=== PATIENT | female | born 1970 | race Caucasian/White ===

== ENCOUNTER → 2016-12-24 | Outpatient (CLI) | payer BC ==
[~2016-12-24] MED LIST: HYDR50CA2 PO; ISOS120T5 PO; LIDO5DIS10 TD; LISI-725 PO; METO25TA56 PO; ONDA4TAB46 PO; TRAM-10 PO; TRAZ1TAB8 PO
[2016-12-24 14:12] LABS: LYME DISEASE AB IGG NEG (NEG); LYME DISEASE AB IGM NEG (NEG)
[2016-12-29 12:38] LABS: ALBUMIN 4.8 G/DL (3.8-4.8); GAMMA GLOBULIN 0.9 G/DL (0.8-1.7); TOTAL PROTEIN 7.2 G/DL (6.2-8.3); VIT B1 PLASMA(THIAMIN)**90353 11 nmol/L (8-30); VITAMIN B6** TC 926 47.4 ng/mL (2.1-21.7)
== END | disposition home or self-care (01) ==
LOC: C.LAB 11:39
PROVIDERS: ATTEND Psychiatry & Neurology Neurology
DX: G62.9 Polyneuropathy, unspecified (principal)

== ENCOUNTER → 2017-06-06 | Outpatient (CLI) | payer BC ==
[2017-06-06 12:27] LABS: HEMATOCRIT 38.1 % (37-47); MEAN CELL VOLUME 88.6 fL (80-100); MEAN CORPUSCULAR HEMOGLOBIN 30.5 pg (25-34); MEAN CORPUSCULAR HGB CONC 34.4 g/dl (32-36); MEAN PLATELET VOLUME 9.9 fL (7.4-10.4); PLATELET COUNT 257 K/uL (130-400); WHITE BLOOD COUNT 5.68 K/uL (4.8-10.8)
== END | disposition home or self-care (01) ==
LOC: C.LABBFT 10:57
PROVIDERS: ATTEND Physician Assistant Medical
DX: Z00.00 Encounter for general adult medical examination without abnormal findings (principal)

== ENCOUNTER 2021-09-17 10:09 | Inpatient (IN) ==
[2021-09-17] MEDS ORDERED: fentaNYL citrate 100 MCG/2 ML VIAL IV STA (10:30)
[2021-09-17] MEDS ORDERED: ACETAMINOPHEN 1,000 MG/100 ML VIAL IV STA ×2 (10:30→18:00)
[2021-09-17 11:22] LABS: Basophils # (auto) 0.02 K/uL (0-0.2); Basophils % (auto) 0.4 %; Eosinophils # (auto) 0.09 K/uL (0-0.5); Hematocrit (blood only) 37.3 % (37-47); Hemoglobin 13.2 g/dL (12.0-16.0); Lymphocytes # (auto) 1.61 K/uL (1.2-3.4); Lymphocytes % (auto) 35.3 %; Mean Corpuscular Hemoglobin 31.1 pg (25-34); Mean Corpuscular Hgb Conc 35.4 g/dL (32-36); Mean Corpuscular Volume 87.8 fL (80-100); Mean Platelet Volume 9.7 fL (7.4-10.4); Monocytes # (auto) 0.37 K/uL (0.11-0.59); Monocytes % (auto) 8.1 %; Neutrophils # (auto) 2.47 K/uL (1.4-6.5); Neutrophils % (auto) 54.2 %; Platelet Count 248 K/uL (130-400); RDW Coefficient of Variation 12.2 % (11.5-14.5); RDW Standard Deviation 39.1 fL (36.4-46.3); Red Blood Count 4.25 M/uL (4.2-5.4); White Blood Count 4.56 K/uL (4.8-10.8)
[2021-09-17] MEDS: SODIUM CHLORIDE 0.9% 1000ML 1,000 ML IV SCH ×2 (11:26→18:13)
[2021-09-17 11:42] LABS: Albumin Level 4.3 gm/dl (3.4-5.0); BUN Creatinine Ratio 28.1 (10-20); Creatinine Clr Calc Pharmacy 91.2 ml/min; Est GFR (African American) 105.3 ml/min; Est GFR (Non-African American) 90.8 ml/min; Magnesium 1.8 mg/dl (1.8-2.4); Potassium 4.2 mmol/L (3.5-5.1)
[2021-09-17 11:53] LABS: Albumin Globulin Ratio 1.3 (0.9-2); Bilirubin,Total 0.4 mg/dl (0.2-1); Globulin 3.3 gm/dl (2.5-4.0); Thyroid Stimulating Hormone 1.29 uIu/ml (0.300-4.500); Total Protein 7.6 gm/dl (6.4-8.2)
[2021-09-17] MEDS ORDERED: OPTIRAY 320 125ml IV ONE (12:29)
--- NOTE | 2021-09-17 12:49 | Emergency Department Note ---
History of Present Illness General Chief complaint: Headache Stated complaint: HEADACHE Time Seen by Provider: 09/17/21 10:17 Source: patient Mode of arrival: ambulatory Limitations: no limitations History of Present Illness Provider complaint: Posterior headache, left upper extremity numbness Maximum Pain Intensity: 6 Treatments prior to arrival: NSAID This is a 51-year-old female presents emergency department complaining of a left-sided posterior headache. She states she had a mild bitemporal headache yesterday which is more consistent with her migraines, she took some ibuprofen and that resolved. She states that this morning she woke up with a left posteri or headache, got an ice pack to place on it and then went back to sleep. She states when she awoke again, the pain seemed worse and she had some numbness to the left upper extremity. No additional numbness to any extremity, no accompanying weakness. She states the pain is an 8/10. No radiation down the back, she feels there is some radiation forward through to the eye. She denies vision changes, dizziness, nausea, vomiting, photophobia, or phonophobia. She states this is atypical for her usual migraines which are typically triggered by weather changes. Patient most concerned that she has previously had a vertebral artery dissection. She states this was diagnosed last year, she was on Plavix for 3 months and then transition to a full-strength aspirin daily which she is still taking. She denies any other trauma or change in activity. No recent illness, fevers or chills. No other treatment prior to arrival today. Patient most concerned about recurrent vascular phenomenon. Pt seen during a time of high acuity and national emergency pandemic while wearing PPE. Home Medications Medication Instructions Recorded Confirmed Type aspirin 325 mg tablet 325 mg PO DAILY 02/09/21 09/17/21 History lisinopril 20 mg tablet 20 mg PO BID 02/09/21 09/17/21 History spironolactone 50 mg tablet 50 mg PO BID 02/09/21 09/17/21 History Allergies Allergy/AdvReac Type Severity Reaction Status Date / Time Influenza Virus Vaccines Allergy Unknown Unknown Verified 09/17/21 12:41 thimerosal Allergy Unknown Unknown Verified 09/17/21 12:41 promethazine AdvReac Intermediate MADE ARM Verified 09/17/21 12:41 TWITCH FOR 6 HRS; HAS TOLERATED COMPAZINE W/O RXN fluoxetine AdvReac Mild "SHAKES" Verified 09/17/21 12:41 Past Med/Surg History Medical History (Updated 09/17/21 @ 20:06 by Sindi Hernandes PA-C) Depression GERD (gastroesophageal reflux disease) History of CVA (cerebrovascular accident) 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 History of stent insertion of renal artery Hx of migraines Hypertension IBS (irritable bowel syndrome) Renal artery stenosis Restless leg syndrome Surgical History History of hysterectomy Hx of fusion of cervical spine Family History (Updated 09/17/21 @ 20:04 by Sindi Hernandes PA-C) Other Diabetes Hypertension Social History (Updated 09/17/21 @ 20:04 by Sindi Hernandes PA-C) Smoking Status: Never smoker Hx Alcohol Use: Yes Alcohol type: wine Hx Substance Use: No Preferred Language: Romanian Communication Ability: Effective Supervisor Garage Required: No Beliefs That Will Affect Care: None Current Living Situation: Significant Other Other Information That Helps Us Care for You: No Feels Safe at Home: Yes Safety Concerns: Feels Safe At This Time Assistive Devices: None Review of Systems A total of 10 systems reviewed and were otherwise negative All systems reviewed & are unremarkable except as noted in HPI & below Physical Exam Vital Signs Vital Signs - 24 hr 09/17/21 11:19 09/17/21 11:31 09/17/21 11:34 Temperature Temperature Source Pulse Rate 72 Pulse Rate [Right Finger] 76 69 Pulse Rhythm [Right Finger] Pulse Strength [Right Finger] Respiratory Rate 16 16 12 Respiratory Effort / Characteristics Non-Labored Non-Labored Respiratory Depth Normal Normal Blood Pressure [Right Arm] 140/86 128/75 Blood Pressure Mean [Right Arm] 104 92 Blood Pressure Position [Right Arm] Pulse Oximetry 99 96 95 Oxygen Delivery Method Room Air Room Air Room Air 09/17/21 12:12 09/17/21 12:15 09/17/21 12:19 Temperature Temperature Source Pulse Rate Pulse Rate [Right Finger] 72 78 Pulse Rhythm [Right Finger] Regular Pulse Strength [Right Finger] Respiratory Rate 20 18 Respiratory Effort / Characteristics Non-Labored Non-Labored Respiratory Depth Normal Normal Blood Pressure [Right Arm] 133/78 150/85 H Blood Pressure Mean [Right Arm] 96 106 Blood Pressure Position [Right Arm] Lying Pulse Oximetry 92 99 92 Oxygen Delivery Method Room Air Room Air Room Air 09/17/21 12:33 09/17/21 13:03 09/17/21 13:09 Temperature Temperature Source Pulse Rate Pulse Rate [Right Finger] 72 66 Pulse Rhythm [Right Finger] Pulse Strength [Right Finger] Respiratory Rate 14 18 Respiratory Effort / Characteristics Non-Labored Non-Labored Respiratory Depth Normal Normal Blood Pressure [Right Arm] 124/76 114/77 Blood Pressure Mean [Right Arm] 92 89 Blood Pressure Position [Right Arm] Pulse Oximetry 98 99 97 Oxygen Delivery Method Room Air Room Air Room Air 09/17/21 14:17 09/17/21 16:00 09/17/21 18:00 Temperature 36.7 C 36.6 C Temperature Source Oral Oral Pulse Rate Pulse Rate [Right Finger] 74 68 Pulse Rhythm [Right Finger] Regular Pulse Strength [Right Finger] Normal Respiratory Rate 14 15 15 Respiratory Effort / Characteristics Non-Labored Respiratory Depth Normal Blood Pressure [Right Arm] 119/71 120/74 107/68 Blood Pressure Mean [Right Arm] 87 89 81 Blood Pressure Position [Right Arm] Pulse Oximetry 97 97 97 Oxygen Delivery Method Room Air GENERAL: alert, well appearing, well nourished, no distress, non-toxic HEAD: pain with palpation over left occipital region/nuchal ridge, mild hype rtonicity noted to superior aspect of left paraspinal muscles in the cervical region near the nuchal ridge EYE EXAM: normal conjunctiva, PERRL and EOM's grossly intact OROPHARYNX: no exudate, no erythema, lips, buccal mucosa, and tongue normal and mucous membranes are moist NECK: supple, no nuchal rigidity, no adenopathy, non-tender, decreased range of motion secondary to pain LUNGS: Clear to auscultation. Normal chest wall mechanics, no w/r/r HEART: no murmurs, S1 normal and S2 normal ABDOMEN: abdomen soft, non-tender, normo-active bowel sounds, no masses, no rebound or guarding. BACK: Back is symmetrical on inspection and there is no deformity, no midline tenderness, no CVA tenderness. SKIN: no rashes and no bruising UPPER EXTREMITIES: upper extremities are grossly normal. FROM, nml pulses b/l. Subjective slightly altered sensation with light touch in the left upper extremity compared to the right. Strength 5/5 bilateral upper extremities. LOWER EXTREMITIES: No pitting edema. FROM, nml pulses b/l. NEURO EXAM: Normal sensorium, cranial nerves II-XII grossly intact, normal sp eech, no facial droop, no gross weakness of arms, no gross weakness of legs. Gross sensation intact. No ataxia. NIHSS 0. Course Course 1340: Pt updated on results. 1503: Pt still having headache. 1632: Mild improvement with muscle relaxer, although she states headache is still present. Left upper extremity paresthesias are improved. 1736: Patient states still having pain. Discussed options for disposition. 1806: Discussed with Sindi Ray, [facility] hospitalist service. Administered Medications Lisinopril (Lisinopril 20 Mg Tab) 20 mg PO BID [facility] Stop: 10/17/21 22:14 Last Admin: 09/18/21 09:57 Dose: Not Given Documented by: [id number] Admin: 09/17/21 23:24 Dose: 20 mg Documented by: [id number] Spironolactone (Spironolactone 25 Mg Tab) 50 mg PO BID [facility] Stop: 10/17/21 22:14 Last Admin: 09/18/21 09:58 Dose: 50 mg Documented by: [id number] Admin: 09/17/21 23:24 Dose: 50 mg Documented by: [id number] Sumatriptan Succinate (Sumatriptan Succinate 50 Mg Tab) 50 mg PO BID PRN PRN Reason: Migraine Headache Stop: 10/18/21 09:39 Last Admin: 09/18/21 10:41 Dose: 50 mg Documented by: [id number] Tramadol HCl (Tramadol Hcl 50 Mg Tablet) 50 mg PO Q4H PRN PRN Reason: Pain Stop: 10/18/21 09:38 Last Admin: 09/18/21 10:41 Dose: 50 mg Documented by: [id number] Discontinued Medications Acetaminophen (Acetaminophen 500 Mg Tab) 1,000 mg PO Q8H [facility] Stop: 10/17/21 18:44 Last Admin: 09/18/21 10:14 Dose: Not Given Documented by: [id number] Admin: 09/17/21 23:24 Dose: 1,000 mg Documented by: [id number] Admin: 09/17/21 19:57 Dose: Not Given Documented by: [id number] Acetaminophen/Butalbital/Caffeine (Butalbital/Acetamin/Caffeine Tab) 1 tab PO NOW STA Stop: 09/17/21 15:40 Last Admin: 09/17/21 15:54 Dose: 1 tab Documented by: [id number] Cyclobenzaprine HCl (Cyclobenzaprine Hcl 5 Mg Tab) 5 mg PO NOW STA Stop: 09/17/21 15:40 Last Admin: 09/17/21 15:54 Dose: 5 mg Documented by: [id number] Dexamethasone Sodium Phosphate (DexamethasonePf 10 Mg/Ml Vial) 10 mg IV NOW ONE Stop: 09/17/21 16:39 Last Admin: 09/17/21 17:05 Dose: 10 mg Documented by: [id number] Diclofenac Sodium (Diclofenac Sod 1% Gel 100 Gm Tube) 2 gm EXT NOW STA Stop: 09/17/21 15:40 Last Admin: 09/17/21 15:54 Dose: 2 gm Documented by: [id number] Fentanyl Citrate (Fentanyl Citrate 100 Mcg/2 Ml Vial) 50 mcg IV NOW STA Stop: 09/17/21 10:31 Last Admin: 09/17/21 11:21 Dose: 50 mcg Documented by: [id number] Sodium Chloride (Nss 1000ml) 1,000 mls @ 125 mls/hr IV .Q8H [facility]IG[facility]EL[facility]O Stop: 10/17/21 10:29 Last Infusion: 09/17/21 23:26 Dose: 0 mls/hr Documented by: [id number] Admin: 09/17/21 18:13 Dose: 125 mls/hr Documented by: [id number] Infusion: 09/17/21 18:13 Dose: 125 mls/hr Documented by: [id number] Admin: 09/17/21 11:26 Dose: 125 mls/hr Documented by: [id number] Acetaminophen (Ofirmev) 1,000 mg in 100 mls @ 400 mls/hr IV NOW STA Stop: 09/17/21 10:44 Last Infusion: 09/17/21 11:42 Dose: 0 mls/hr Documented by: [id number] Admin: 09/17/21 11:24 Dose: 400 mls/hr Documented by: [id number] Magnesium Sulfate/Dextrose (Magnesium Sulfate / D5w) 1 gm in 100 mls @ 100 mls/hr IV NOW STA Stop: 09/17/21 17:38 Last Infusion: 09/17/21 19:59 Dose: 0 mls/hr Documented by: [id number] Admin: 09/17/21 17:06 Dose: 100 mls/hr Documented by: [id number] Acetaminophen (Ofirmev) 1,000 mg in 100 mls @ 400 mls/hr IV NOW STA Stop: 09/17/21 18:14 Last Infusion: 09/17/21 19:58 Dose: 0 mls/hr Documented by: [id number] Admin: 09/17/21 18:14 Dose: 400 mls/hr Documented by: [id number] Ioversol (Optiray 320 125ml) 119 ml IV ONCE ONE Stop: 09/17/21 12:30 Last Admin: 09/17/21 12:30 Dose: 119 ml Documented by: [id number] Ketorolac Tromethamine (Ketorolac Tromethamine 15 Mg/Ml Vial) 10 mg IV NOW ONE Stop: 09/17/21 13:47 Last Admin: 09/17/21 14:03 Dose: 15 mg Documented by: [id number] Ketorolac Tromethamine (Ketorolac Tromethamine 15 Mg/Ml Vial) 15 mg IV Q6H [facility]EL[facility]O Stop: 09/18/21 11:01 Last Admin: 09/18/21 05:45 Dose: 15 mg Documented by: [id number] Admin: 09/17/21 23:24 Dose: 15 mg Documented by: [id number] Morphine Sulfate (Morphine Sulfate 4 Mg/Ml 1 Ml Carp\\Vial) 4 mg IV NOW STA Stop: 09/17/21 16:39 Last Admin: 09/17/21 17:06 Dose: 4 mg Documented by: [id number] Morphine Sulfate (Morphine Sulfate 4 Mg/Ml 1 Ml Carp\\Vial) 4 mg IV NOW STA Stop: 09/17/21 18:55 Last Admin: 09/17/21 19:23 Dose: 4 mg Documented by: [id number] Morphine Sulfate (Morphine Sulfate 4 Mg/Ml 1 Ml Carp\\Vial) Confirm Administered Dose 4 mg .ROUTE .STK-MED ONE Stop: 09/17/21 22:11 Last Admin: 09/17/21 22:16 Dose: 4 mg Documented by: [id number] Morphine Sulfate (Morphine Sulfate 4 Mg/Ml 1 Ml Carp\\Vial) 4 mg IV Q4 PRN PRN Reason: Severe Pain Stop: 10/01/21 22:14 Last Admin: 09/18/21 07:32 Dose: 4 mg Documented by: [id number] Admin: 09/18/21 03:06 Dose: 4 mg Documented by: [id number] Medical Decision Making Differential Diagnosis Differential Diagnosis includes but is not limited to headache, tension headache, cluster headache, migraine, subarachnoid hemorrhage, meningitis, mass, central venous thrombus, concussion, trauma and epidural/subdural hemorrhage. Medical Records Attestation: I reviewed the patient's medical records. Home Medications Current Medication List: was personally reviewed by me Laboratory Data Attestation: I reviewed the patient's lab results. Result diagrams: 09/18/21 05:42 09/18/21 05:42 Lab Results 09/17/21 09/17/21 09/17/21 Range/Units 11:10 11:10 18:17 WBC 4.56 L (4.8-10.8) K/uL RBC 4.25 (4.2-5.4) M/uL Hgb 13.2 (12.0-16.0) g/dL Hct 37.3 (37-47) % MCV 87.8 (80-100) fL MCH 31.1 (25-34) pg MCHC 35.4 (32-36) g/dL RDW Std Deviation 39.1 (36.4-46.3) fL RDW Coeff of Lucy 12.2 (11.5-14.5) % Plt Count 248 (130-400) K/uL MPV 9.7 (7.4-10.4) fL Immature Gran % (Auto) 0.0 % Neut % (Auto) 54.2 % Lymph % (Auto) 35.3 % Payne % (Auto) 8.1 % Eos % (Auto) 2.0 % Baso % (Auto) 0.4 % Neut # (Auto) 2.47 (1.4-6.5) K/uL Lymph # (Auto) 1.61 (1.2-3.4) K/uL Payne # (Auto) 0.37 (0.11-0.59) K/uL Eos # (Auto) 0.09 (0-0.5) K/uL Baso # (Auto) 0.02 (0-0.2) K/uL Immature Gran # (Auto) 0.00 (0.00-0.02) K/uL Sodium 136 (136-145) mmol/L Potassium 4.2 (3.5-5.1) mmol/L Chloride 103 (98-107) mmol/L Carbon Dioxide 29 (21-32) mmol/L Anion Gap 4.0 (3-11) BUN 21 H (7-18) mg/dl Creatinine 0.76 (0.6-1.2) mg/dl Est Cr Clr Drug Dosing 91.2 ml/min Est GFR ( Amer) 105.3 ml/min Est GFR (Non-Af Amer) 90.8 ml/min BUN/Creatinine Ratio 28.1 H (10-20) Glucose 99 (70-99) mg/dl Calcium 9.0 (8.5-10.1) mg/dl Magnesium 1.8 (1.8-2.4) mg/dl Total Bilirubin 0.4 (0.2-1) mg/dl AST 19 (15-37) U/L ALT 23 (12-78) U/L Alkaline Phosphatase 70 (45-117) U/L Total Protein 7.6 (6.4-8.2) gm/dl Albumin 4.3 (3.4-5.0) gm/dl Globulin 3.3 (2.5-4.0) gm/dl Albumin/Globulin Ratio 1.3 (0.9-2) TSH 1.290 (0.300-4.500) uIu/ml COVID-19 Eval Order Covid19 at [facility] SARS-CoV-2 (PCR) (Negative) 09/17/21 Range/Units 18:17 WBC (4.8-10.8) K/uL RBC (4.2-5.4) M/uL Hgb (12.0-16.0) g/dL Hct (37-47) % MCV (80-100) fL MCH (25-34) pg MCHC (32-36) g/dL RDW Std Deviation (36.4-46.3) fL RDW Coeff of Lucy (11.5-14.5) % Plt Count (130-400) K/uL MPV (7.4-10.4) fL Immature Gran % (Auto) % Neut % (Auto) % Lymph % (Auto) % Payne % (Auto) % Eos % (Auto) % Baso % (Auto) % Neut # (Auto) (1.4-6.5) K/uL Lymph # (Auto) (1.2-3.4) K/uL Payne # (Auto) (0.11-0.59) K/uL Eos # (Auto) (0-0.5) K/uL Baso # (Auto) (0-0.2) K/uL Immature Gran # (Auto) (0.00-0.02) K/uL Sodium (136-145) mmol/L Potassium (3.5-5.1) mmol/L Chloride (98-107) mmol/L Carbon Dioxide (21-32) mmol/L Anion Gap (3-11) BUN (7-18) mg/dl Creatinine (0.6-1.2) mg/dl Est Cr Clr Drug Dosing ml/min Est GFR ( Amer) ml/min Est GFR (Non-Af Amer) ml/min BUN/Creatinine Ratio (10-20) Glucose (70-99) mg/dl Calcium (8.5-10.1) mg/dl Magnesium (1.8-2.4) mg/dl Total Bilirubin (0.2-1) mg/dl AST (15-37) U/L ALT (12-78) U/L Alkaline Phosphatase (45-117) U/L Total Protein (6.4-8.2) gm/dl Albumin (3.4-5.0) gm/dl Globulin (2.5-4.0) gm/dl Albumin/Globulin Ratio (0.9-2) TSH (0.300-4.500) uIu/ml COVID-19 Eval Order SARS-CoV-2 (PCR) NEGATIVE (Negative) Imaging Data Radiologist's Impression: Head CTA 09/17/21 10:[address] OF THE BRAIN; CT ANGIOGRAM OF THE BRAIN; CT ANGIOGRAM OF THE NECK CLINICAL HISTORY: Atypical headache. 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 COMPARISON STUDY: CT angiogram of the head and neck dated 02/09/2021. TECHNIQUE: Unenhanced axial CT scan of the brain is performed. Subsequently, following the IV administration of 119 of Optiray 320, CT angiogram of the head and neck was performed from the aortic arch to the vertex. Images are reviewed in the axial, sagittal, and coronal planes. 3-D MIPS images are created and assessed. IV contrast was administered without complication. All measurements were calculated based on NASCET criteria. A dose lowering technique was utilized adhering to the principles of ALARA. 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 There is no hemorrhage, mass effect, or evidence of acute territorial ischemia by CT criteria. There is no evidence of enhancing mass lesion on the angiogram phase images. The ventricles, sulci, and cisterns are normal in configuration. Power-white matter differentiation is preserved. No extra-axial fluid collection is seen. Thoracic aorta: Visualized portions of the thoracic aorta are normal in caliber. The aortic arch demonstrates standard 3-vessel anatomy. Right carotid arterial system: The right common carotid artery is widely patent, as are the right internal and external carotid arteries. Left carotid arterial system: The left common carotid artery is widely patent, as are the left internal and external carotid arteries. Minimal plaque is noted in the carotid bulb. Vertebral arteries: The right vertebral artery is widely patent and dominant. The proximal and mid portions of the left vertebral artery are patent. 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 This may be related to underlying dissection. The left vertebral artery is reconstituted at the level of C1. Subclavian arteries: Widely patent bilaterally. Intracranial vasculature: There is a large right posterior communicating artery. The internal carotid arteries are patent at the skull base, as are the anterior and middle cerebral arteries bilaterally. The intracranial vertebral arteries and the basilar artery are patent, as are the posterior cerebral arteries. The right vertebral artery is dominant. There is no aneurysm, high-grade stenosis, or focal vessel cut off seen throughout the intracranial circulation. Jugular veins: Patent bilaterally. Dural sinuses: Patent. Lung apices: Partially visualized upper lobe lung parenchyma appears clear. Soft tissues: The visualized pharyngeal soft tissues are normal in appearance noting angiographic phase technique. The oropharyngeal airway appears widely patent. The salivary and thyroid glands are normal in appearance. No cervical lymphadenopathy is seen. Skeletal structures: The calvarium appears intact. 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 There are also bilateral interpedicular screws at C2 with cerclage wires in the posterior elements. This is unchanged from previous. The cervical spine is otherwise maintained noting mild multilevel spondylosis. Orbits: The bony orbits are intact. Orbital contents are normal as visualized. Sinuses and mastoids: The paranasal sinuses are clear. The mastoid air cells are well pneumatized. IMPRESSION: 1. There is no hemorrhage, mass effect, or evidence of acute territorial ischemia by CT criteria. 2. Unremarkable CT angiogram of the brain. 3. 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 4. The carotid arteries and right vertebral artery are widely patent. 5. Chronic posttraumatic and postoperative changes of C2. This is also similar to previous. ACT 112: Negative or not required by law. Electronically signed by: Cristian Ramirez M.D. 09/17/2021 12:53 PM Neck CTA 09/17/21 10:[address] OF THE BRAIN; CT ANGIOGRAM OF THE BRAIN; CT ANGIOGRAM OF THE NECK CLINICAL HISTORY: Atypical headache. 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 COMPARISON STUDY: CT angiogram of the head and neck dated 02/09/2021. TECHNIQUE: Unenhanced axial CT scan of the brain is performed. Subsequently, following the IV administration of 119 of Optiray 320, CT angiogram of the head and neck was performed from the aortic arch to the vertex. Images are reviewed in the axial, sagittal, and coronal planes. 3-D MIPS images are created and assessed. IV contrast was administered without complication. All measurements were calculated based on NASCET criteria. A dose lowering technique was utilized adhering to the principles of ALARA. 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 There is no hemorrhage, mass effect, or evidence of acute territorial ischemia by CT criteria. There is no evidence of enhancing mass lesion on the angiogram phase images. The ventricles, sulci, and cisterns are normal in configuration. Power-white matter differentiation is preserved. No extra-axial fluid collection is seen. Thoracic aorta: Visualized portions of the thoracic aorta are normal in caliber. The aortic arch demonstrates standard 3-vessel anatomy. Right carotid arterial system: The right common carotid artery is widely patent, as are the right internal and external carotid arteries. Left carotid arterial system: The left common carotid artery is widely patent, as are the left internal and external carotid arteries. Minimal plaque is noted in the carotid bulb. Vertebral arteries: The right vertebral artery is widely patent and dominant. The proximal and mid portions of the left vertebral artery are patent. 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 This may be related to underlying dissection. The left vertebral artery is reconstituted at the level of C1. Subclavian arteries: Widely patent bilaterally. Intracranial vasculature: There is a large right posterior communicating artery. The internal carotid arteries are patent at the skull base, as are the anterior and middle cerebral arteries bilaterally. The intracranial vertebral arteries and the basilar artery are patent, as are the posterior cerebral arteries. The right vertebral artery is dominant. There is no aneurysm, high-grade stenosis, or focal vessel cut off seen throughout the intracranial circulation. Jugular veins: Patent bilaterally. Dural sinuses: Patent. Lung apices: Partially visualized upper lobe lung parenchyma appears clear. Soft tissues: The visualized pharyngeal soft tissues are normal in appearance noting angiographic phase technique. The oropharyngeal airway appears widely patent. The salivary and thyroid glands are normal in appearance. No cervical lymphadenopathy is seen. Skeletal structures: The calvarium appears intact. 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 There are also bilateral interpedicular screws at C2 with cerclage wires in the posterior elements. This is unchanged from previous. The cervical spine is otherwise maintained noting mild multilevel spondylosis. Orbits: The bony orbits are intact. Orbital contents are normal as visualized. Sinuses and mastoids: The paranasal sinuses are clear. The mastoid air cells are well pneumatized. IMPRESSION: 1. There is no hemorrhage, mass effect, or evidence of acute territorial ischemia by CT criteria. 2. Unremarkable CT angiogram of the brain. 3. 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 4. The carotid arteries and right vertebral artery are widely patent. 5. Chronic posttraumatic and postoperative changes of C2. This is also similar to previous. ACT 112: Negative or not required by law. Electronically signed by: Cristian Ramirez M.D. 09/17/2021 12:[address] 09/17/21 10:[address] OF THE BRAIN; CT ANGIOGRAM OF THE BRAIN; CT ANGIOGRAM OF THE NECK CLINICAL HISTORY: Atypical headache. 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 COMPARISON STUDY: CT angiogram of the head and neck dated 02/09/2021. TECHNIQUE: Unenhanced axial CT scan of the brain is performed. Subsequently, following the IV administration of 119 of Optiray 320, CT angiogram of the head and neck was performed from the aortic arch to the vertex. Images are reviewed in the axial, sagittal, and coronal planes. 3-D MIPS images are created and assessed. IV contrast was administered without complication. All measurements were calculated based on NASCET criteria. A dose lowering technique was utilized adhering to the principles of ALARA. 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 There is no hemorrhage, mass effect, or evidence of acute territorial ischemia by CT criteria. There is no evidence of enhancing mass lesion on the angiogram phase images. The ventricles, sulci, and cisterns are normal in configuration. Power-white matter differentiation is preserved. No extra-axial fluid collection is seen. Thoracic aorta: Visualized portions of the thoracic aorta are normal in caliber. The aortic arch demonstrates standard 3-vessel anatomy. Right carotid arterial system: The right common carotid artery is widely patent, as are the right internal and external carotid arteries. Left carotid arterial system: The left common carotid artery is widely patent, as are the left internal and external carotid arteries. Minimal plaque is noted in the carotid bulb. Vertebral arteries: The right vertebral artery is widely patent and dominant. The proximal and mid portions of the left vertebral artery are patent. 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 This may be related to underlying dissection. The left vertebral artery is reconstituted at the level of C1. Subclavian arteries: Widely patent bilaterally. Intracranial vasculature: There is a large right posterior communicating artery. The internal carotid arteries are patent at the skull base, as are the anterior and middle cerebral arteries bilaterally. The intracranial vertebral arteries and the basilar artery are patent, as are the posterior cerebral arteries. The right vertebral artery is dominant. There is no aneurysm, high-grade stenosis, or focal vessel cut off seen throughout the intracranial circulation. Jugular veins: Patent bilaterally. Dural sinuses: Patent. Lung apices: Partially visualized upper lobe lung parenchyma appears clear. Soft tissues: The visualized pharyngeal soft tissues are normal in appearance noting angiographic phase technique. The oropharyngeal airway appears widely patent. The salivary and thyroid glands are normal in appearance. No cervical lymphadenopathy is seen. Skeletal structures: The calvarium appears intact. 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 There are also bilateral interpedicular screws at C2 with cerclage wires in the posterior elements. This is unchanged from previous. The cervical spine is otherwise maintained noting mild multilevel spondylosis. Orbits: The bony orbits are intact. Orbital contents are normal as visualized. Sinuses and mastoids: The paranasal sinuses are clear. The mastoid air cells are well pneumatized. IMPRESSION: 1. There is no hemorrhage, mass effect, or evidence of acute territorial ischemia by CT criteria. 2. Unremarkable CT angiogram of the brain. 3. 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 4. The carotid arteries and right vertebral artery are widely patent. 5. Chronic posttraumatic and postoperative changes of C2. This is also similar to previous. ACT 112: Negative or not required by law. Electronically signed by: Cristian Ramirez M.D. 09/17/2021 12:53 PM MDM Narrative Patient has no family history of vertebral dissection. Patient was first seen and observation began at 1017 and was necessary in order to evaluate etiology of headache and treat with multiple doses of medication. Upon re-evaluation, 7 hours of observation revealed that the patient could be admitted. Discharge time at 1806. An order was placed for continuous cardiac monitoring. The monitor shows a rate of _86_ with __normal sinus rhythm. This is a 51-year-old female with a past history of migraine headaches as well as a vertebral artery dissection who presents for intractable left posterior headache. Patient describes headache is different from prior events. Patient does have chronic ongoing superior C-spine pain likely musculoskeletal in etiology due to an indwelling screw from a prior neck surgery. Patient most concerned about recurrent vascular phenomenon. Patient afebrile, no recent illness, no recent trauma or change in activity. Labs drawn and sent were reassuring, CT and CT angiography did not reveal any new or acute findings. Patient given multiple medications for pain control without any significant improvement in relief of symptoms. Patient observed for many hours during this process to attempt to achieve adequate pain control for possible discharge home and close outpatient follow-up. Unfortunately this was unable to be achieved, case discussed with hospitalist for additional inpatient evaluation and management and likely neurology consult. At this time I do not suspect occult cerebellar infarct or bleed, central venous sinus thrombus, occult SAH or ICH, acute C-spine injury or nerve impingement. Description of symptoms not consistent with occipital neuralgia. Possible component of tension headache versus atypical migraine. Impression & Plan Acute intractable headache Discharge Plan Visit Data Chief Complaint: Headache Stated Complaint: HEADACHE ED Provider: Janie Atwood Discharge Problem: Acute intractable headache Patient Disposition: Being Evaluated by Hospitalist Condition: Good Discharge Instructions Interventions: ED Discharge Assessment Last Done: 09/17/21 21:42 Discharge Problem: Acute intractable headache Qualifiers: Headache type: unspecified Qualified Code(s): R51.9 - Headache, unspecified
--- NOTE | 2021-09-17 12:55 | CT Scan Report ---
UNENHANCED CT OF THE BRAIN; CT ANGIOGRAM OF THE BRAIN; CT ANGIOGRAM OF THE NECK CLINICAL HISTORY: Atypical headache. 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 COMPARISON STUDY: CT angiogram of the head and neck dated 02/09/2021. TECHNIQUE: Unenhanced axial CT scan of the brain is performed. Subsequently, following the IV adminis tration of 119 of [address] [address], CT angiogram of the head and neck was performed from the aortic arch t o the vertex. Images are reviewed in the axial, sagittal, and coronal planes. 3-D MIPS images are cre ated and assessed. IV contrast was administered without complication. All measurements were calculate d based on NASCET criteria. A dose lowering technique was utilized adhering to the principles of ALA RA. 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 There is no he morrhage, mass effect, or evidence of acute territorial ischemia by CT criteria. There is no evidence of enhancing mass lesion on the angiogram phase images. The ventricles, sulci, and cisterns are norm al in configuration. Power-white matter differentiation is preserved. No extra-axial fluid collection is seen. Thoracic aorta: Visualized portions of the thoracic aorta are normal in caliber. The aortic arch demo nstrates standard 3-vessel anatomy. Right carotid arterial system: The right common carotid artery is widely patent, as are the right int ernal and external carotid arteries. Left carotid arterial system: The left common carotid artery is widely patent, as are the left chief internal auditor al and external carotid arteries. Minimal plaque is noted in the carotid bulb. Vertebral arteries: The right vertebral artery is widely patent and dominant. The proximal and mid po rtions of the left vertebral artery are patent. There is complete thrombosis of the distal left cervi ashlee vertebral artery at the level of C2, best seen on image #265. This may be related to underlying d issection. The left vertebral artery is reconstituted at the level of C1. Subclavian arteries: Widely patent bilaterally. Intracranial vasculature: There is a large right posterior communicating artery. The internal carotid arteries are patent at the skull base, as are the anterior and middle cerebral arteries bilaterally. The intracranial vertebral arteries and the basilar artery are patent, as are the posterior cerebral arteries. The right vertebral artery is dominant. There is no aneurysm, high-grade stenosis, or foca l vessel cut off seen throughout the intracranial circulation. Jugular veins: Patent bilaterally. Dural sinuses: Patent. Lung apices: Partially visualized upper lobe lung parenchyma appears clear. Soft tissues: The visualized pharyngeal soft tissues are normal in appearance noting angiographic pha se technique. The oropharyngeal airway appears widely patent. The salivary and thyroid glands are nor mal in appearance. No cervical lymphadenopathy is seen. Skeletal structures: The calvarium appears intact. 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 There are also bilateral interpedic ular screws at C2 with cerclage wires in the posterior elements. This is unchanged from previous. The cervical spine is otherwise maintained noting mild multilevel spondylosis. Orbits: The bony orbits are intact. Orbital contents are normal as visualized. Sinuses and mastoids: The paranasal sinuses are clear. The mastoid air cells are well pneumatized. IMPRESSION: 1. There is no hemorrhage, mass effect, or evidence of acute territorial ischemia by CT criteria. 2. Unremarkable CT angiogram of the brain. 3. There is unchanged appearance of the cervical left vertebral artery as compared to 02/09/2021, like ly representing chronic dissection with a short segment of complete occlusion at the level of C2. 4. The carotid arteries and right vertebral artery are widely patent. 5. Chronic posttraumatic and postoperative changes of C2. This is also similar to previous. ACT 112: Negative or not required by law. Electronically signed by: Cristian Ramirez M.D. 09/17/2021 12:53 PM
[2021-09-17] MEDS ORDERED: KETOROLAC TROMETHAMINE 15 MG/ML VIAL IV ONE (13:46)
[2021-09-17] MEDS ORDERED: CYCLOBENZAPRINE HCL 5 MG TAB PO STA (15:39)
[2021-09-17] MEDS ORDERED: BUTALBITAL/ACETAMIN/CAFFEINE TAB PO STA (15:39)
[2021-09-17] MEDS ORDERED: DICLOFENAC SOD 1% GEL 100 GM TUBE EXT STA (15:39)
[2021-09-17] MEDS ORDERED: MoRPHine SULFATE 4 MG/ML 1 ML CARP\\VIAL IV STA ×2 (16:38→18:54)
[2021-09-17] MEDS ORDERED: dexAMETHasone**PF** 10 MG/ML VIAL IV ONE (16:38)
[2021-09-17] MEDS ORDERED: MAGNESIUM SULFATE / D5W 1 GM/100 ML BAG IV STA (16:39)
--- NOTE | 2021-09-17 18:11 | Electrocardiogram Report ---
Test Reason : Blood Pressure : / mmHG Vent. Rate : 070 BPM Atrial Rate : 070 BPM P-R Int : 176 ms QRS Dur : 090 ms QT Int : 406 ms P-R-T Axes : 041 026 054 degrees QTc Int : 438 ms Normal sinus rhythm Normal ECG When compared with ECG of 15-JUL-2020 14:29, No significant change was found Confirmed by Sarwat Chino ([id number]) on 09/17/2021 6:11:28 PM Referred By: REFERRED SELF Confirmed By:Haja Chino
--- NOTE | 2021-09-17 18:21 | History & Physical Report ---
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 Patient describes headache today as pain left occipital region and left superior neck. Had some dizziness today. Also reports paresthesias left forearm. Denies any associated nausea, vomiting, photophobia, phonophobia. OTC medicines did not help to relieve headache. History headache when had a vertebral artery dissection in past however this headache does not feel the same. History chronic intermittent neck pain secondary to prior C-spine injury and surgery. Chronic paresthesias bilateral thighs. -neurosurgery at [facility] had previously discussed possible removal of screw as suspicion was there may be some impingement on C2-C3 facet causing neck pain. Currently patient has held off on any further surgery. Has chronic limited range of motion of head and neck secondary to prior surgery and denies any increased neck stiffness. In past migraines were associated with photophobia, phonophobia nausea and vomiting. Denies fever/chills, diaphoresis, N/V/D/C, syncope, vision changes, CP, SOB, orthopnea, palpitations, cough, sore throat, choking, otalgia, rhinorrhea, abdominal pain, weakness, extremity weakness, extremity edema, rashes, urinary symptoms. In ER patient afebrile, vitals stable, labs unremarkable. CTA head and neck: 1. There is no hemorrhage, mass effect, or evidence of acute territorial ischemia by CT criteria. 2. Unremarkable CT angiogram of the brain. 3. 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 4. The carotid arteries and right vertebral artery are widely patent. 5. Chronic posttraumatic and postoperative changes of C2. This is also similar to previous. In ER was given IV Tylenol, fentanyl, Fioricet Toradol, Flexeril, morphine, dexamethasone with a little improvement of headache however headache still persists. Headache may be secondary to musculoskeletal etiology, h/o cervical spine trauma and surgery and known screw with probable impingement on C2-C3. Less likely migrainous. CTA head and neck no acute ischemia and no signs of vertebral ar cody dissection Will dose scheduled Tylenol, scheduled Toradol for 24 hours for pain Morphine as needed pain Neurology consult (2) History of CVA (cerebrovascular accident): Plan: History of vertebral artery dissection in 2019 after C-spine surgery. Initially treated with Plavix and aspirin (3) Hypertension: Plan: Continue lisinopril, spironolactone DVT Prophylaxis -SCDs Full Code as per discussion with pt Follows with Dr Babb for routine care Pt was seen and care coordinated with Dr Vasquez. 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 Patient describes headache today as pain left occipital region and left superior neck. Had some dizziness today. Also reports paresthesias left forearm. Denies any associated nausea, vomiting, photophobia, phonophobia. OTC medicines did not help to relieve headache. History headache when had a vertebral artery dissection in past however this headache does not feel the same. History chronic intermittent neck pain secondary to prior C-spine injury and surgery. Chronic paresthesias bilateral thighs. -neurosurgery at [facility] had previously discussed possible removal of screw as suspicion was there may be some impingement on C2-C3 facet causing neck pain. Currently patient has held off on any further surgery. Has chronic limited range of motion of head and neck secondary to prior surgery and denies any increased neck stiffness. In past migraines were associated with photophobia, phonophobia nausea and vomiting. Denies fever/chills, diaphoresis, N/V/D/C, syncope, vision changes, CP, SOB, orthopnea, palpitations, cough, sore throat, choking, otalgia, rhinorrhea, abdominal pain, weakness, extremity weakness, extremity edema, rashes, urinary symptoms. In ER patient afebrile, vitals stable, labs unremarkable. CTA head and neck:1. There is no hemorrhage, mass effect, or evidence of acute territorial ischemia by CT criteria. 2. Unremarkable CT angiogram of the brain. 3. 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 4. The carotid arteries and right vertebral artery are widely patent. 5. Chronic posttraumatic and postoperative changes of C2. This is also similar to previous. Was given IV Tylenol, fentanyl, Fioricet Toradol, Flexeril, morphine, dexamethasone with a little improvement of headache however headache still persists. Patient being admitted for further observation and treatment. Allergies Allergy/AdvReac Type Severity Reaction Status Date / Time Influenza Virus Vaccines Allergy Unknown Unknown Verified 09/17/21 12:41 thimerosal Allergy Unknown Unknown Verified 09/17/21 12:41 promethazine AdvReac Intermediate MADE ARM Verified 09/17/21 12:41 TWITCH FOR 6 HRS; HAS TOLERATED COMPAZINE W/O RXN fluoxetine AdvReac Mild "SHAKES" Verified 09/17/21 12:41 Home Medications Medication Instructions Recorded Confirmed Type aspirin 325 mg tablet 325 mg PO DAILY 02/09/21 09/17/21 History lisinopril 20 mg tablet 20 mg PO BID 02/09/21 09/17/21 History spironolactone 50 mg tablet 50 mg PO BID 02/09/21 09/17/21 History Past Med/Surg History Medical History (Updated 09/17/21 @ 20:06 by Sindi Hernandes PA-C) Depression GERD (gastroesophageal reflux disease) History of CVA (cerebrovascular accident) 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 History of stent insertion of renal artery Hx of migraines Hypertension IBS (irritable bowel syndrome) Renal artery stenosis Restless leg syndrome Surgical History History of hysterectomy Hx of fusion of cervical spine Family History (Updated 09/17/21 @ 20:04 by Sindi Hernandes PA-C) Other Diabetes Hypertension Social History (Updated 09/17/21 @ 20:04 by Sindi Hernandes PA-C) Smoking Status: Never smoker Hx Alcohol Use: Yes (2-3 drinks twice weekly) Hx Substance Use: No Feels Safe at Home: Yes Review of Systems Review of Systems: All systems reviewed & are unremarkable except as noted in HPI & below Physical Exam Physical Exam: General: no distress, WDWN Head: normocephalic, atraumatic Eyes: PERRL, EOM's intact, conjunctiva non-injected, anicteric ENT: normal inspection external ears, nose, mucous membranes moist Neck: supple, trachea midline, no increased tenderness to palpation, Limited active ROM Lungs: clear, no respiratory distress, no wheezing/rhonchi/rales CV: RRR, no murmur, no pretibial edema Abd: normal BS, soft, non-tender Ext: no cyanosis, no calf tenderness Neuro: A&O x 3, no focal deficits noted, normal affect Skin: warm, dry Results & Data Results & Data ([facility]) Vital Signs (Past 12 Hours) Vital Signs Temp Pulse Pulse Resp BP BP Pulse Ox 09/17/21 14:17 14 119/71 97 09/17/21 13:09 97 09/17/21 13:03 66 18 114/77 99 09/17/21 12:33 72 14 124/76 98 09/17/21 12:19 78 18 150/85 H 92 09/17/21 12:15 72 20 133/78 99 09/17/21 12:12 92 09/17/21 11:34 72 12 95 09/17/21 11:31 69 16 128/75 96 09/17/21 11:19 76 16 140/86 99 09/17/21 10:09 36.6 C 88 18 142/99 H 98 Laboratory Results Short CBC 09/17/21 Range/Units 11:10 WBC 4.56 L (4.8-10.8) K/uL Hgb 13.2 (12.0-16.0) g/dL Hct 37.3 (37-47) % Plt Count 248 (130-400) K/uL BMP 09/17/21 11:10 Sodium 136 Potassium 4.2 Chloride 103 Carbon Dioxide 29 BUN 21 H Creatinine 0.76 Glucose 99 Calcium 9.0 Liver Function 09/17/21 Range/Units 11:10 Total Bilirubin 0.4 (0.2-1) mg/dl AST 19 (15-37) U/L ALT 23 (12-78) U/L Alkaline Phosphatase 70 (45-117) U/L Albumin 4.3 (3.4-5.0) gm/dl Diagnostic Findings Head CTA 09/17/21 10:[address] OF THE BRAIN; CT ANGIOGRAM OF THE BRAIN; CT ANGIOGRAM OF THE NECK CLINICAL HISTORY: Atypical headache. 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 COMPARISON STUDY: CT angiogram of the head and neck dated 02/09/2021. TECHNIQUE: Unenhanced axial CT scan of the brain is performed. Subsequently, following the IV administration of 119 of Optiray 320, CT angiogram of the head and neck was performed from the aortic arch to the vertex. Images are reviewed in the axial, sagittal, and coronal planes. 3-D MIPS images are created and assessed. IV contrast was administered without complication. All measurements were calculated based on NASCET criteria. A dose lowering technique was utilized adhering to the principles of ALARA. 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 There is no hemorrhage, mass effect, or evidence of acute territorial ischemia by CT criteria. There is no evidence of enhancing mass lesion on the angiogram phase images. The ventricles, sulci, and cisterns are normal in configuration. Power-white matter differentiation is preserved. No extra-axial fluid collection is seen. Thoracic aorta: Visualized portions of the thoracic aorta are normal in caliber. The aortic arch demonstrates standard 3-vessel anatomy. Right carotid arterial system: The right common carotid artery is widely patent, as are the right internal and external carotid arteries. Left carotid arterial system: The left common carotid artery is widely patent, as are the left internal and external carotid arteries. Minimal plaque is noted in the carotid bulb. Vertebral arteries: The right vertebral artery is widely patent and dominant. The proximal and mid portions of the left vertebral artery are patent. 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 This may be related to underlying dissection. The left vertebral artery is reconstituted at the level of C1. Subclavian arteries: Widely patent bilaterally. Intracranial vasculature: There is a large right posterior communicating artery. The internal carotid arteries are patent at the skull base, as are the anterior and middle cerebral arteries bilaterally. The intracranial vertebral arteries and the basilar artery are patent, as are the posterior cerebral arteries. The right vertebral artery is dominant. There is no aneurysm, high-grade stenosis, or focal vessel cut off seen throughout the intracranial circulation. Jugular veins: Patent bilaterally. Dural sinuses: Patent. Lung apices: Partially visualized upper lobe lung parenchyma appears clear. Soft tissues: The visualized pharyngeal soft tissues are normal in appearance noting angiographic phase technique. The oropharyngeal airway appears widely patent. The salivary and thyroid glands are normal in appearance. No cervical lymphadenopathy is seen. Skeletal structures: The calvarium appears intact. 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 There are also bilateral interpedicular screws at C2 with cerclage wires in the posterior elements. This is unchanged from previous. The cervical spine is otherwise maintained noting mild multilevel spondylosis. Orbits: The bony orbits are intact. Orbital contents are normal as visualized. Sinuses and mastoids: The paranasal sinuses are clear. The mastoid air cells are well pneumatized. IMPRESSION: 1. There is no hemorrhage, mass effect, or evidence of acute territorial ischemia by CT criteria. 2. Unremarkable CT angiogram of the brain. 3. 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 4. The carotid arteries and right vertebral artery are widely patent. 5. Chronic posttraumatic and postoperative changes of C2. This is also similar to previous. ACT 112: Negative or not required by law. Electronically signed by: Cristian Ramirez M.D. 09/17/2021 12:53 PM Neck CTA 09/17/21 10:[address] OF THE BRAIN; CT ANGIOGRAM OF THE BRAIN; CT ANGIOGRAM OF THE NECK CLINICAL HISTORY: Atypical headache. 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 COMPARISON STUDY: CT angiogram of the head and neck dated 02/09/2021. TECHNIQUE: Unenhanced axial CT scan of the brain is performed. Subsequently, following the IV administration of 119 of Optiray 320, CT angiogram of the head and neck was performed from the aortic arch to the vertex. Images are reviewed in the axial, sagittal, and coronal planes. 3-D MIPS images are created and assessed. IV contrast was administered without complication. All measurements were calculated based on NASCET criteria. A dose lowering technique was utilized adhering to the principles of ALARA. 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 There is no hemorrhage, mass effect, or evidence of acute territorial ischemia by CT criteria. There is no evidence of enhancing mass lesion on the angiogram phase images. The ventricles, sulci, and cisterns are normal in configuration. Power-white matter differentiation is preserved. No extra-axial fluid collection is seen. Thoracic aorta: Visualized portions of the thoracic aorta are normal in caliber. The aortic arch demonstrates standard 3-vessel anatomy. Right carotid arterial system: The right common carotid artery is widely patent, as are the right internal and external carotid arteries. Left carotid arterial system: The left common carotid artery is widely patent, as are the left internal and external carotid arteries. Minimal plaque is noted in the carotid bulb. Vertebral arteries: The right vertebral artery is widely patent and dominant. The proximal and mid portions of the left vertebral artery are patent. 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 This may be related to underlying dissection. The left vertebral artery is reconstituted at the level of C1. Subclavian arteries: Widely patent bilaterally. Intracranial vasculature: There is a large right posterior communicating artery. The internal carotid arteries are patent at the skull base, as are the anterior and middle cerebral arteries bilaterally. The intracranial vertebral arteries and the basilar artery are patent, as are the posterior cerebral arteries. The right vertebral artery is dominant. There is no aneurysm, high-grade stenosis, or focal vessel cut off seen throughout the intracranial circulation. Jugular veins: Patent bilaterally. Dural sinuses: Patent. Lung apices: Partially visualized upper lobe lung parenchyma appears clear. Soft tissues: The visualized pharyngeal soft tissues are normal in appearance noting angiographic phase technique. The oropharyngeal airway appears widely patent. The salivary and thyroid glands are normal in appearance. No cervical lymphadenopathy is seen. Skeletal structures: The calvarium appears intact. 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 There are also bilateral interpedicular screws at C2 with cerclage wires in the posterior elements. This is unchanged from previous. The cervical spine is otherwise maintained noting mild multilevel spondylosis. Orbits: The bony orbits are intact. Orbital contents are normal as visualized. Sinuses and mastoids: The paranasal sinuses are clear. The mastoid air cells are well pneumatized. IMPRESSION: 1. There is no hemorrhage, mass effect, or evidence of acute territorial ischemi a by CT criteria. 2. Unremarkable CT angiogram of the brain. 3. 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 4. The carotid arteries and right vertebral artery are widely patent. 5. Chronic posttraumatic and postoperative changes of C2. This is also similar to previous. ACT 112: Negative or not required by law. Electronically signed by: Cristian Ramirez M.D. 09/17/2021 12:[address] 09/17/21 10:[address] OF THE BRAIN; CT ANGIOGRAM OF THE BRAIN; CT ANGIOGRAM OF THE NECK CLINICAL HISTORY: Atypical headache. 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 COMPARISON STUDY: CT angiogram of the head and neck dated 02/09/2021. TECHNIQUE: Unenhanced axial CT scan of the brain is performed. Subsequently, following the IV administration of 119 of Optiray 320, CT angiogram of the head and neck was performed from the aortic arch to the vertex. Images are reviewed in the axial, sagittal, and coronal planes. 3-D MIPS images are created and assessed. IV contrast was administered without complication. All measurements were calculated based on NASCET criteria. A dose lowering technique was utilized adhering to the principles of ALARA. 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 There is no hemorrhage, mass effect, or evidence of acute territorial ischemia by CT criteria. There is no evidence of enhancing mass lesion on the angiogram phase images. The ventricles, sulci, and cisterns are normal in configuration. Power-white matter differentiation is preserved. No extra-axial fluid collection is seen. Thoracic aorta: Visualized portions of the thoracic aorta are normal in caliber. The aortic arch demonstrates standard 3-vessel anatomy. Right carotid arterial system: The right common carotid artery is widely patent, as are the right internal and external carotid arteries. Left carotid arterial system: The left common carotid artery is widely patent, as are the left internal and external carotid arteries. Minimal plaque is noted in the carotid bulb. Vertebral arteries: The right vertebral artery is widely patent and dominant. The proximal and mid portions of the left vertebral artery are patent. 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 This may be related to underlying dissection. The left vertebral artery is reconstituted at the level of C1. Subclavian arteries: Widely patent bilaterally. Intracranial vasculature: There is a large right posterior communicating artery. The internal carotid arteries are patent at the skull base, as are the anterior and middle cerebral arteries bilaterally. The intracranial vertebral arteries and the basilar artery are patent, as are the posterior cerebral arteries. The right vertebral artery is dominant. There is no aneurysm, high-grade stenosis, or focal vessel cut off seen throughout the intracranial circulation. Jugular veins: Patent bilaterally. Dural sinuses: Patent. Lung apices: Partially visualized upper lobe lung parenchyma appears clear. Soft tissues: The visualized pharyngeal soft tissues are normal in appearance noting angiographic phase technique. The oropharyngeal airway appears widely patent. The salivary and thyroid glands are normal in appearance. No cervical lymphadenopathy is seen. Skeletal structures: The calvarium appears intact. 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 There are also bilateral interpedicular screws at C2 with cerclage wires in the posterior elements. This is unchanged from previous. The cervical spine is otherwise maintained noting mild multilevel spondylosis. Orbits: The bony orbits are intact. Orbital contents are normal as visualized. Sinuses and mastoids: The paranasal sinuses are clear. The mastoid air cells are well pneumatized. IMPRESSION: 1. There is no hemorrhage, mass effect, or evidence of acute territorial ischemia by CT criteria. 2. Unremarkable CT angiogram of the brain. 3. 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 4. The carotid arteries and right vertebral artery are widely patent. 5. Chronic posttraumatic and postoperative changes of C2. This is also similar to previous. ACT 112: Negative or not required by law. Electronically signed by: Cristian Ramirez M.D. 09/17/2021 12:53 PM Supervising Physician Co-Signing Physician Notes History and physical exam performed by me as detailed by Sindi Hernandes PA-C Notable for headache at base of skull, left sided, referred to the eyes, associated with some right forearm numbness. This is different from her usual migraine. Exam only remarkable for surgical scars Intractable headache Based on surgical history, dissection last year, recent talk with her neurosurgeon considering options of possible screw removal, headache may be related to this. Reports she usually has photophobia,phonophobia, resolves with NSAIDS with her usual migraine which is different as these are absent Other differentials include TIA/CVA CT H and CTA head/neck did not report new findings. Will control pain. Scheduled ketorolac, tylenol Will appreciate neurology eval and recs Agree with other plans as detailed by Sindi Hernandes PA-C (1) Acute intractable headache Headache type: unspecified Qualified Code(s): R51.9 - Headache, unspecified
--- NOTE | 2021-09-17 19:05 | Communication Note ---
Date of Service: September 17, 2021 History and physical exam performed by me as detailed by Sindi Hernandes PA-C Notable for headache at base of skull, left sided, referred to the eyes, associated with some right forearm numbness. This is different from her usual migraine. Exam only remarkable for surgical scars Intractable headache Based on surgical history, dissection last year, recent talk with her neurosurgeon considering options of possible screw removal, headache may be related to this. Reports she usually has photophobia,phonophobia, resolves with NSAIDS with her usual migraine which is different as these are absent Other differentials include TIA/CVA CT H and CTA head/neck did not report new findings. Will control pain. Scheduled ketorolac, tylenol Will appreciate neurology eval and recs Agree with other plans as detailed by Sindi Hernandes PA-C
[2021-09-17] MEDS: ACETAMINOPHEN 500 MG TAB PO SCH ×2 (19:57→23:24)
[2021-09-17] MEDS ORDERED: MoRPHine SULFATE 4 MG/ML 1 ML CARP\\VIAL ONE (22:10)
[2021-09-17] MEDS ORDERED: ONDANSETRON INJ 2 MG/ML 2 ML VIAL IV PRN (22:15)
[2021-09-17] MEDS ORDERED: POLYETHYLENE (MIRALAX) 17 GM PACK PO PRN (22:15)
[2021-09-17] MEDS: KETOROLAC TROMETHAMINE 15 MG/ML VIAL IV SCH (23:24)
[2021-09-17] MEDS: SPIRONOLACTONE 25 MG TAB PO SCH (23:24)
[2021-09-17] MEDS: lisinopril 20 MG TAB PO SCH (23:24)
[2021-09-18] MEDS: MoRPHine SULFATE 4 MG/ML 1 ML CARP\\VIAL IV PRN ×2 (03:06→07:32)
[2021-09-18] MEDS: KETOROLAC TROMETHAMINE 15 MG/ML VIAL IV SCH ×2 (05:45→12:11)
[2021-09-18 06:43] LABS: Hemoglobin 12.6 g/dL (12.0-16.0); Mean Corpuscular Hemoglobin 30.6 pg (25-34); Mean Corpuscular Volume 87.4 fL (80-100); Mean Platelet Volume 10.3 fL (7.4-10.4); Platelet Count 248 K/uL (130-400); RDW Coefficient of Variation 12.1 % (11.5-14.5); RDW Standard Deviation 38.8 fL (36.4-46.3); Red Blood Count 4.12 M/uL (4.2-5.4); White Blood Count 4.92 K/uL (4.8-10.8)
[2021-09-18 07:14] LABS: BUN Creatinine Ratio 28.5 (10-20); Creatinine Clr Calc Pharmacy 110.8 ml/min; Est GFR (African American) 120.4 ml/min; Est GFR (Non-African American) 103.9 ml/min; Potassium 4.7 mmol/L (3.5-5.1)
[2021-09-18] MEDS ORDERED: traMADol HCL 50 MG TABLET PO PRN (09:39)
[2021-09-18] MEDS ORDERED: SUMAtriptan succinate 50 MG TAB PO PRN (09:40)
[2021-09-18] MEDS: lisinopril 20 MG TAB PO SCH ×2 (09:57→21:13)
[2021-09-18] MEDS: SPIRONOLACTONE 25 MG TAB PO SCH ×2 (09:58→21:14)
[2021-09-18] MEDS: ACETAMINOPHEN 500 MG TAB PO SCH ×3 (10:14→21:12)
[2021-09-18] MEDS ORDERED: GABAPENTIN 100 MG CAP PO SCH ×2 (10:15→21:00)
--- NOTE | 2021-09-18 11:36 | Communication Note ---
Date of Service: September 18, 2021 Jina is 51 years old has a history of migraines since childhood that are under good control generally are manifested by some visual phenomenon and a generalized headache She also has a history of an odontoid fracture post trauma with surgical fusion in the summer 2019 followed by perioperative dissection of left vertebral artery and a stroke involving the right cerebellum but manifested by left-sided clumsiness weakness and numbness. 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 with reconstitution later She presented yesterday with left arm numbness and left suboccipital headache similar if not identical to the pain she had when she had the stroke and presented to the emergency room Imaging studies have shown little change in the chronic occlusion of the left vertebral artery with reconstitution and only the old right cerebellar infarction on CT scan but an MRI scan will need to be done to delineate any new areas of infarction Currently discussions are being held with the spine surgical team at [facility] regarding the safety of going ahead with an MRI with the metallic fragments but I suspect this will be possible was most surgical material now is titanium and imaging of the posterior circulation distribution in the brainstem and cerebellum my opinion is essential to exclude another small stroke At 1 point she was noncompliant with antiplatelet therapy with Plavix and aspirin and this was continued for 3 months but she is now only on aspirin Other problems include restless leg syndrome history of migraines which are well controlled, GERD, hypertension, renal artery stenosis and irritable bowel syndrome and depression Home medications include aspirin lisinopril and spironolactone Laboratory studies are basically unremarkable Imaging studies are described above Review of systems reveals no recent systemic illnesses weight loss weight gain new issues referable to HEENT, cardiovascular pulmonary gastrointestinal genitourinary musculoskeletal dermatologic or hematologic systems and she insists "appropriately that this headache pattern is not typical of her migraines but is more reminiscent of her symptoms prior to the posterior circulation strokeor occurring at the same time as a stroke in 2019 Exam reveals blood pressure 100/63 pulse 81 respirations 16 she is afebrile there is no O2 saturation 99% She is awake alert oriented 3 spheres with no extraocular motility issues visual field deficits facial weakness facial sensation loss but with tenderness of the left occipital region and some tenderness to deep palpation but without radiation of pain into her occipital scalp and with somewhat limited range of motion of the neck but with a negative Spurling sign for induction of paresthesias involving the left arm. Reflexes etc. are quite stable there is no real drift or pronation sign is no real weakness of the left arm and she has more of a subjective sensory disturbance involving the entirety of the left arm rather than one that can be demonstrated by sensory exam My concern here is pretty much the same as the patient i.e. that of a recurrent small area of infarction involving the brainstem or craniocervical junction potentially isolated to the left posterior columns involving sensory fibers originating from the arm and ascending in the upper cervical cord and lower medulla prior to their decussation If a new infarction is seen she will have to have Plavix added back to the aspirin I have recommended we try gabapentin for her pain which does have an neuralgic component to it and certainly if we do not see a new infarction this can be continued buildup to 100mg 3 times a day and she mayeventually be considered a candidate for occipital nerve block if the pain persists and is resistant to gabapentin but first I think we need to exclude the major concern about a recurrent CVA I will follow-up by computer later on today Manny Jacobsen MD
--- NOTE | 2021-09-18 11:47 | Hospitalist Progress Note ---
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 Patient describes headache today as pain left occipital region and left superior neck. [place] [facility] [place] discussed possible removal of screw as suspicion was there may be some impingement on C2-C3 facet causing neck pain. Currently patient has held off on any further surgery. CT head and CTA did not show any new acute abnormalities Has been on ketorolac, tylenol and morphine since last night Discussed with Neurologist Dr Jacobsen who recommend getting MRI brain and starting gabapentin MRI brain does not show acute abnormalities Will continue to try to control pain on oral meds Patient will need to follow up with Dr Randolph (2) History of CVA (cerebrovascular accident): Plan: History of vertebral artery dissection in 2019 after C-spine surgery. 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 Denied any nausea, vomiting Denied any fevers, chills No focal weakness, No blurred vision No chest pain,cough, SOB No abd pain, diarrhea, constipation No dysuria, frequency, urgency Reports chronic bilateral thigh paresthesia Physical Exam Constitutional: + well hydrated; no acute distress Eyes: PERRL, conjunctivae normal, anicteric sclerae ENMT: external ear and nose normal, oropharynx normal Neck: No tenderness. Surgical scar on posterior neck Limited passive ROM to about 60 to 90 degrees which patient stated has been same since surgery Respiratory: normal respiratory effort, lungs clear to auscultation Cardiovascular: RRR, no murmur, no edema Gastrointestinal (Abdomen): normal bowel sounds, soft, nontender, no hepatosplenomegaly Musculoskeletal: no cyanosis or clubbing, extremities motor strength 5/5 Neurologic: PERRL, EOMI, accommodation nl, no face palsy, no dysarthria Motor/Sensory: no tremor and no sensory deficit Psychiatric: A+Ox3, euthymic affect Results & Data Results & Data ([facility]) Vital Signs (Past 12 Hours) Vital Signs BP 09/18/21 09:56 100/63 Laboratory Results Abnormal lab results 09/18/21 09/18/21 Range/Units 05:42 05:42 RBC 4.12 L (4.2-5.4) M/uL Hct 36.0 L (37-47) % Sodium 133 L (136-145) mmol/L BUN/Creatinine Ratio 28.5 H (10-20) Glucose 103 H (70-99) mg/dl (1) Acute intractable headache Headache type: unspecified Qualified Code(s): R51.9 - Headache, unspecified
[2021-09-18] MEDS ORDERED: LORazepam 0.5 MG/1 ML VIAL IV PRN (12:51)
[2021-09-18] MEDS ORDERED: GADOBUTROL 65ML VIAL IV ONE (14:24)
[2021-09-18] MEDS: ASPIRIN 325 MG ECTAB PO SCH (14:46)
--- NOTE | 2021-09-18 16:19 | Magnetic Resonance Report ---
Brain MRI WITH AND WITHOUT CONTRAST HISTORY: Left posterior headache Rule out CVA TECHNIQUE: Multiplanar multisequence MRI of the brain was performed both before and after the intrave nous administration of contrast. COMPARISON STUDY: Head CT 09/17/2021. Brain MRI 06/06/2012. FINDINGS: There are no areas of restricted diffusion to suggest acute infarction. The midline structu res are intact. The paranasal sinuses are clear. The mastoid air cells are clear. The ventricles and sulci are within normal limits for age. There is no mass, hematoma, midline shift. The major vascular flow-voids at the skull base are well maintained. Postcontrast sequences show no areas of abnormal e nhancement. Stable left frontal developmental venous anomaly which is considered to be a normal varia nt. An old right cerebellar lacunar infarct is also unchanged. IMPRESSION: No significant change compared to the prior study. No acute intracranial abnormality. ACT 112: Negative or not required by law. Electronically signed by: Venkat Mc M.D. 09/18/2021 4:17 PM
[2021-09-18] MEDS: IBUPROFEN 200 MG TAB PO PRN (17:11)
[2021-09-18] MEDS: oxyCODONE HCL IR 5 MG TAB (IMMEDIATE RELEASE) PO PRN ×2 (17:11→23:19)
[2021-09-18 21:11] VITALS: TEMP 97.9
[2021-09-19] MEDS: IBUPROFEN 200 MG TAB PO PRN ×2 (01:23→11:29)
[2021-09-19] MEDS: oxyCODONE HCL IR 5 MG TAB (IMMEDIATE RELEASE) PO PRN ×2 (05:58→12:01)
[2021-09-19] MEDS: ACETAMINOPHEN 500 MG TAB PO SCH ×2 (05:59→13:22)
[2021-09-19 06:31] LABS: Hematocrit (blood only) 33.6 % (37-47); Hemoglobin 11.6 g/dL (12.0-16.0); Mean Corpuscular Hemoglobin 30.9 pg (25-34); Mean Corpuscular Hgb Conc 34.5 g/dL (32-36); Mean Corpuscular Volume 89.4 fL (80-100); Mean Platelet Volume 9.8 fL (7.4-10.4); Platelet Count 231 K/uL (130-400); RDW Coefficient of Variation 12.3 % (11.5-14.5); RDW Standard Deviation 39.8 fL (36.4-46.3); Red Blood Count 3.76 M/uL (4.2-5.4); White Blood Count 4.83 K/uL (4.8-10.8)
[2021-09-19 07:02] LABS: BUN Creatinine Ratio 30.9 (10-20); Calcium 9.1 mg/dl (8.5-10.1); Creatinine Clr Calc Pharmacy 90.7 ml/min; Est GFR (African American) 103.6 ml/min; Est GFR (Non-African American) 89.4 ml/min; Potassium 4.4 mmol/L (3.5-5.1)
[2021-09-19 07:24] VITALS: O2SAT 94
[2021-09-19 08:40] VITALS: BP 120/81; PULSE 69
[2021-09-19] MEDS: ASPIRIN 325 MG ECTAB PO SCH (08:40)
[2021-09-19] MEDS: lisinopril 20 MG TAB PO SCH (08:41)
[2021-09-19] MEDS: SPIRONOLACTONE 25 MG TAB PO SCH (08:43)
[2021-09-19] MEDS ORDERED: PANTOprazole 40 MG TAB PO SCH (09:00)
[2021-09-19] MEDS ORDERED: GABAPENTIN 100 MG CAP PO SCH ×3 (09:00→21:00)
--- NOTE | 2021-09-19 12:30 | Communication Note ---
Date of Service: September 19, 2021 Jina was seen today at her bedside. She is somewhat better but still has significant pain in the left suboccipital region and some mild paresthesias of her left arm. She feels she could go home rather than stay here as she feels she could handle things better there and I agree The MRI shows no evidence for a new CVA in the left upper cervical cord or lateral medulla and there is no evidence to suggest that the dissection has recanalized or that there is been any alteration in the appearance of the chronic occlusion in the left vertebral artery and no evidence for emergence of other occult vascular events since her last MRI scan Again she is tender in the left suboccipital region to palpation but I really cannot create any paresthesias in the occipital scalp that would suggest a greater occipital neuralgia My suggestions would be to discharge her on 100 mg of gabapentin twice a day and 200 mg at her bedtime depending on her shift work and have her return to her primary care physician and discuss things with Dr. Randolph of spine surgery in [place] regarding potential removal of the screw Frankly I think she might do well with a pain management referral for potential injection therapy and this could be done through her primary care physician with a referral to Dr. Juarez at [facility] is going to withdraw at this point but would be happy to take a look at her in our outpatient clinic should this pain in her migraines become more problematical in the future but at that point I think our recommendation will be to have interventional pain management get involved if the pain remains of the type that we are seeing today If however the pattern becomes more migrainous then perhaps medical management will be required but that component of her headaches according to her is minimal Manny Jacobsen MD
--- NOTE | 2021-09-19 12:49 | Discharge Summary ---
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 Patient describes headache today as pain left occipital region and left superior neck. Had some dizziness today. Also reports paresthesias left forearm. Denies any associated nausea, vomiting, photophobia, phonophobia. OTC medicines did not help to relieve headache. History headache when had a vertebral artery dissection in past however this headache does not feel the same. History chronic intermittent neck pain secondary to prior C-spine injury and surgery. Chronic paresthesias bilateral thighs. [place] [facility] [place] previously discussed possible removal of screw as suspicion was there may be some impingement on C2-C3 facet causing neck pain. Currently patient has held off on any further surgery. Has chronic limited range of motion of head and neck secondary to prior surgery and denies any increased neck stiffness. In past migraines were associated with photophobia, phonophobia nausea and vomiting. Denies fever/chills, diaphoresis, N/V/D/C, syncope, vision changes, CP, SOB, orthopnea, palpitations, cough, sore throat, choking, otalgia, rhinorrhea, abdominal pain, weakness, extremity weakness, extremity edema, rashes, urinary symptoms. In ER patient afebrile, vitals stable, labs unremarkable. CTA head and neck:1. There is no hemorrhage, mass effect, or evidence of acute territorial ischemia by CT criteria. 2. Unremarkable CT angiogram of the brain. 3. 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 4. The carotid arteries and right vertebral artery are widely patent. 5. Chronic posttraumatic and postoperative changes of C2. This is also similar to previous. Was given IV Tylenol, fentanyl, Fioricet Toradol, Flexeril, morphine, dexamethasone with a little improvement of headache however headache still persists. Patient being admitted for further observation and treatment. Admission Exam Per Admitting Provider General: no distress, WDWN Head: normocephalic, atraumatic Eyes: PERRL, EOM's intact, conjunctiva non-injected, anicteric ENT: normal inspection external ears, nose, mucous membranes moist Neck: supple, trachea midline, no increased tenderness to palpation, Limited active ROM Lungs: clear, no respiratory distress, no wheezing/rhonchi/rales CV: RRR, no murmur, no pretibial edema Abd: normal BS, soft, non-tender Ext: no cyanosis, no calf tenderness Neuro: A&O x 3, no focal deficits noted, normal affect Skin: warm, dry Principal Diagnosis Intractable headache Discharge Exam Constitutional + well hydrated; no acute distress Eyes PERRL, conjunctivae normal, anicteric sclerae ENMT external ear and nose normal, oropharynx normal Respiratory normal respiratory effort, lungs clear to auscultation Cardiovascular RRR, no murmur, no edema Gastrointestinal (Abdomen) normal bowel sounds, soft, nontender, no hepatosplenomegaly Musculoskeletal no cyanosis or clubbing, extremities motor strength 5/5 Neurologic PERRL, EOMI, accommodation nl, no face palsy, no dysarthria Motor/Sensory: no tremor and no sensory deficit Psychiatric A+Ox3, euthymic affect Discharge Data Allergies Allergy/AdvReac Type Severity Reaction Status Date / Time Influenza Virus Vaccines Allergy Unknown Unknown Verified 09/17/21 12:41 thimerosal Allergy Unknown Unknown Verified 09/17/21 12:41 promethazine AdvReac Intermediate MADE ARM Verified 09/17/21 12:41 TWITCH FOR 6 HRS; HAS TOLERATED COMPAZINE W/O RXN fluoxetine AdvReac Mild "SHAKES" Verified 09/17/21 12:41 Consultations 09/17/21 18:07 ED Decision to Admit Stat 09/17/21 22:15 Consult Neurology Routine Ordered Studies 09/17/21 10:30 CT angio head w con Stat CT angio neck with con Stat 09/17/21 10:31 CT head/brain wo con Stat Brain parenchyma: There is a small chronic infarct in the right cerebellar hemisphere. There is no hemorrhage, mass effect, or evidence of acute territorial ischemia by CT criteria. There is no evidence of enhancing mass lesion on the angiogram phase images. The ventricles, sulci, and cisterns are normal in configuration. Power-white matter differentiation is preserved. No extra-axial fluid collection is seen. Thoracic aorta: Visualized portions of the thoracic aorta are normal in caliber. The aortic arch demonstrates standard 3-vessel anatomy. Right carotid arterial system: The right common carotid artery is widely patent, as are the right internal and external carotid arteries. Left carotid arterial system: The left common carotid artery is widely patent, as are the left internal and external carotid arteries. Minimal plaque is noted in the carotid bulb. Vertebral arteries: The right vertebral artery is widely patent and dominant. The proximal and mid portions of the left vertebral artery are patent. 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 This may be related to underlying dissection. The left vertebral artery is reconstituted at the level of C1. Subclavian arteries: Widely patent bilaterally. Intracranial vasculature: There is a large right posterior communicating artery. The internal carotid arteries are patent at the skull base, as are the anterior and middle cerebral arteries bilaterally. The intracranial vertebral arteries and the basilar artery are patent, as are the posterior cerebral arteries. The right vertebral artery is dominant. There is no aneurysm, high-grade stenosis, or focal vessel cut off seen throughout the intracranial circulation. Jugular veins: Patent bilaterally. Dural sinuses: Patent. Lung apices: Partially visualized upper lobe lung parenchyma appears clear. Soft tissues: The visualized pharyngeal soft tissues are normal in appearance noting angiographic phase technique. The oropharyngeal airway appears widely patent. The salivary and thyroid glands are normal in appearance. No cervical lymphadenopathy is seen. Skeletal structures: The calvarium appears intact. 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 There are also bilateral interpedicular screws at C2 with cerclage wires in the posterior elements. This is unchanged from previous. The cervical spine is otherwise maintained noting mild multilevel spondylosis. Orbits: The bony orbits are intact. Orbital contents are normal as visualized. Sinuses and mastoids: The paranasal sinuses are clear. The mastoid air cells are well pneumatized. IMPRESSION: 1. There is no hemorrhage, mass effect, or evidence of acute territorial ischemia by CT criteria. 2. Unremarkable CT angiogram of the brain. 3. 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 4. The carotid arteries and right vertebral artery are widely patent. 5. Chronic posttraumatic and postoperative changes of C2. This is also similar to previous. 10/30/21 12:30 MR brain wo/w con Urgent There are no areas of restricted diffusion to suggest acute infarction. The midline structures are intact. The paranasal sinuses are clear. The mastoid air cells are clear. The ventricles and sulci are within normal limits for age. There is no mass, hematoma, midline shift. The major vascular flow-voids at the skull base are well maintained. Postcontrast sequences show no areas of abnormal enhancement. Stable left frontal developmental venous anomaly which is considered to be a normal variant. An old right cerebellar lacunar infarct is also unchanged. IMPRESSION: No significant change compared to the prior study. No acute intracranial abnormality. 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 Patient describes headache today as pain left occipital region and left superior neck. -[place] [facility] [place] previously discussed possible removal of screw as suspicion was there may be some impingement on C2-C3 facet causing neck pain. Currently patient has held off on any further surgery. CT head and CTA did not show any new acute abnormalities MRI brain does not show acute abnormalities Patient continues to have headache despite multiple pain management regimen Patient required some iv opioid initially on admission. Patient was put on scheduled tylenol, NSAIDs, sumatriptan and gabapentin Still required oral oxycodone to get pain a bit controlled Discussed with Neurologist Dr Jacobsen who also evaluated patient. Patient's headache today is slightly improved. Patient discharged on gabapentin 100mg bid and 200mg HS Discussed with patient to only use oxycodone prn for severe pain not controlled by tylenol and her home ibuprofen I discussed with patient risks of opioid including addiction, overdose and other side effects. Discharged on a few doses. Advised this is for short term until she can follow up with her Neurosurgeon or pain management She stated she will call her Neurosurgeon tomorrow for appointment as pain could also be related to previous surgery based on history provided Patient can also be referred for pain management or Dr Juarez in [facility]. Gabapentin may also be uptitrated as appropriate by her doctors (2) History of CVA (cerebrovascular accident): History of vertebral artery dissection in 2020 after C-spine surgery. Initially treated with Plavix and aspirin Currently on ASA (3) Hypertension: Continue lisinopril, spironolactone Total Time Total Time Spent Total Time Spent (In Minutes): 40 Total Time Includes: Examination of the Patient, Discharge Planning, Medication Reconciliation and Communication With Other Providers Discharge Plan Discharge Items Patient Disposition: Home - Self-Care Reason For Visit: Headache Discharge Diagnosis: Intractable headache Condition on Discharge: Good Activity: Resume your previous activity Non-emergency contact: Primary Care Provider and Surgeon Call non-emergency contact if: you have any medication questions and your symptoms worsen Follow-up/Referrals: Anthony Babb MD [Primary Care Provider] - Diet: Heart Healthy Addtl Attending Provider Instructions: Mrs. Ureña You came to the hospital complaining of intractable headache. You were evaluated with CT scans and MRI brain which did not show any new stroke or abnormalities. You were also evaluated by the Neurologist. Your pain is being controlled with oral medications. Please use the oxycodone sparingly only as needed for severe pain. Please ensure you follow up with your Neurosurgeon as soon as possible. If headache persists, please discuss with your Primary Doctor about pain management referral with Dr Juarez at [facility]. It was a pleasure taking care of you. Pending Studies at Discharge: No Stand-Alone Forms: My [facility], Opioid Pain Management, Smoking Cessation Medications and DC Order Prescriptions: New acetaminophen [Tylenol Extra Strength] 500 mg Tablet 1,000 mg PO Q8 Qty: 50 RF: 0 gabapentin 100 mg Capsule 200 mg PO HS Qty: 30 RF: 0 gabapentin 100 mg Capsule 100 mg PO BID Qty: 60 RF: 0 oxycodone 5 mg Tablet 7.5 mg PO Q6H PRN (Reason: severe pain (scale score 7-10)) Qty: 20 RF: 0 Continued aspirin 325 mg Tablet 325 mg PO DAILY RF: 0 lisinopril 20 mg tablet 20 mg PO BID RF: 0 spironolactone 50 mg tablet 50 mg PO BID RF: 0 Discharge Orders: Discharge Order (Routine); Ordered 09/19/21 Ordered By: Jenny Gaston/Other Patient Handouts: ED Headache, Migraine, Classic Admission Data Admit Date/Time: 09/18/21 16:57 Attending Provider: Jenny Vasquez I. Admit Provider: Jenny Vasquez I. Primary Care Provider: Anthony Babb Other Providers: Jenny Vasquez I. ; Manny Jacobsen Other Interventions: Discharge Summary Assessment (RN) Last Done: 09/19/21 13:03
--- NOTE | 2021-09-19 13:34 | Hospitalist Progress Note ---
Date of Service September 19, 2021 Assessment & Plan Admission and Anticipated Discharge Date Admission Date: September 18, 2021 Results & Data Results & Data ([facility]) Vital Signs (Past 12 Hours) Vital Signs Temp Pulse Resp BP Pulse Ox 09/19/21 08:39 69 120/81 09/19/21 07:23 36.6 C 60 16 116/77 94
[2021-09-19] MEDS ORDERED: oxyCODONE HCL IR 5 MG TAB (IMMEDIATE RELEASE) PO SCH (14:00)
== END 2021-09-19 15:44 | disposition home or self-care (01) | DRG 103 ==
LOC: ED 10:09 → 3E 10:09

== ENCOUNTER 2021-12-20 01:27 | Observation (INO) ==
[2021-12-20] MEDS ORDERED: MoRPHine SULFATE 4 MG/ML 1 ML CARP\\VIAL IV PRN (01:40)
[2021-12-20] MEDS ORDERED: fentaNYL citrate 100 MCG/2 ML VIAL IV STA (01:40)
[2021-12-20] MEDS ORDERED: ONDANSETRON INJ 2 MG/ML 2 ML VIAL IV STA ×2 (01:40→05:39)
[2021-12-20] MEDS ORDERED: SODIUM CHLORIDE 0.9% 1000ML 1,000 ML IV SCH (01:45)
[2021-12-20] MEDS ORDERED: LORazepam 0.5 MG/1 ML VIAL IV STA (01:58)
[2021-12-20 02:09] LABS: Basophils # (auto) 0.02 K/uL (0-0.2); Basophils % (auto) 0.4 %; Eosinophils # (auto) 0.14 K/uL (0-0.5); Hematocrit (blood only) 36.9 % (37-47); Hemoglobin 12.7 g/dL (12.0-16.0); Immature Granulocytes # (auto) 0.01 K/uL (0.00-0.02); Immature Granulocytes % (auto) 0.2 %; Lymphocytes # (auto) 1.84 K/uL (1.2-3.4); Mean Corpuscular Hemoglobin 30.9 pg (25-34); Mean Corpuscular Hgb Conc 34.4 g/dL (32-36); Mean Corpuscular Volume 89.8 fL (80-100); Mean Platelet Volume 9.5 fL (7.4-10.4); Monocytes # (auto) 0.28 K/uL (0.11-0.59); Monocytes % (auto) 5.9 %; Neutrophils # (auto) 2.43 K/uL (1.4-6.5); Neutrophils % (auto) 51.5 %; Platelet Count 268 K/uL (130-400); RDW Coefficient of Variation 12.7 % (11.5-14.5); RDW Standard Deviation 41.7 fL (36.4-46.3); Red Blood Count 4.11 M/uL (4.2-5.4); White Blood Count 4.72 K/uL (4.8-10.8)
[2021-12-20 02:25] LABS: INR 0.9 (0.9-1.1); Partial Thromboplastin Ratio 0.9; Partial Thromboplastin Time 23.8 Seconds (21.0-31.0); Prothrombin Time 9.3 Seconds (9.0-12.0)
[2021-12-20] MEDS ORDERED: diphenhydrAMINE 50 MG/ML VIAL IV STA (02:26)
--- NOTE | 2021-12-20 02:53 | Emergency Department Note ---
History of Present Illness General Chief complaint: Neck Injury/Pain Stated complaint: NECK LOCKED UP S/P NECK SURGERY Time Seen by Provider: 12/20/21 01:36 History of Present Illness Maximum Pain Intensity: 6 This is a 51-year-old female presenting to the emergency department for evaluat ion of significant left-sided neck and head pain for the past 1 day. 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 The patient states that she went home and was able to sleep and get comfortable. She was watching television this evening when she had acute onset 10/10 left-sided neck pain and left side posterior head pain. The patient does have a history of neck surgery, and there is concerned that some of her hardware may be impinging on a nerve or blood vessel. She does have history of CVA in the perioperative phase. There is also old history of each febrile artery dissection that was treated with anticoagulants for a year. The patient has not had fevers or chills. She has not had any numbness or tingling into her arms or legs today. Her pain is rated a 10/10. She is quite uncomfortable on presentation. Home Medications Medication Instructions Recorded Confirmed Type aspirin 325 mg tablet 325 mg PO DAILY 02/09/21 12/20/21 History lisinopril 20 mg tablet 20 mg PO BID 02/09/21 12/20/21 History spironolactone 50 mg tablet 50 mg PO BID 02/09/21 12/20/21 History gabapentin 100 mg capsule 200 mg PO HS #30 cap 09/19/21 12/20/21 Rx acetaminophen 500 mg tablet 1,000 mg PO Q8 PRN 12/20/21 12/20/21 History (Tylenol Extra Strength) Allergies Allergy/AdvReac Type Severity Reaction Status Date / Time Influenza Virus Vaccines Allergy Unknown Unknown Verified 12/20/21 01:54 thimerosal Allergy Unknown Unknown Verified 12/20/21 01:54 promethazine AdvReac Intermediate MADE ARM Verified 12/20/21 01:54 TWITCH FOR 6 HRS; HAS TOLERATED COMPAZINE W/O RXN fluoxetine AdvReac Mild "SHAKES" Verified 12/20/21 01:54 Past Med/Surg History Medical History Depression GERD (gastroesophageal reflux disease) History of CVA (cerebrovascular accident) 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 History of stent insertion of renal artery Hx of migraines Hypertension IBS (irritable bowel syndrome) Renal artery stenosis Restless leg syndrome Surgical History History of hysterectomy Hx of fusion of cervical spine Family History Other Diabetes Hypertension Social History Smoking Status: Never smoker Hx Alcohol Use: Yes Alcohol type: wine Hx Substance Use: No Preferred Language: Latvian Communication Ability: Effective Property Utilization Officer Required: No Beliefs That Will Affect Care: None Current Living Situation: Significant Other Feels Safe at Home: Yes Assistive Devices: Glasses Review of Systems A total of 10 systems reviewed and were otherwise negative Physical Exam Vital Signs Vital Signs - 24 hr 12/20/21 01:31 12/20/21 01:53 12/20/21 01:54 Temperature 36.7 C Temperature Source Temporal Artery Scan Pulse Rate 116 H 100 H Pulse Rate from SpO2 Sensor Respiratory Rate 18 22 Blood Pressure 165/98 H 154/94 H Blood Pressure Mean 120 114 Pulse Oximetry 97 85 L Oxygen Delivery Method Room Air Room Air Oxygen Flow Rate Sepsis Recent Fever Within 48 Hours No Sepsis New/Unexplained Change in Mental Status N/A Sepsis Action Taken by Nursing No Action Required 12/20/21 01:56 12/20/21 02:00 12/20/21 02:30 Temperature Temperature Source Pulse Rate 88 105 H Pulse Rate from SpO2 Sensor Respiratory Rate 12 20 Blood Pressure 159/100 H 151/85 H Blood Pressure Mean 119 107 Pulse Oximetry 98 97 98 Oxygen Delivery Method Nasal Cannula Nasal Cannula Room Air Oxygen Flow Rate 3 3 Sepsis Recent Fever Within 48 Hours Sepsis New/Unexplained Change in Mental Status Sepsis Action Taken by Nursing 12/20/21 03:00 12/20/21 03:35 12/20/21 03:36 Temperature Temperature Source Pulse Rate 92 H 110 H 106 H Pulse Rate from SpO2 Sensor 93 H 106 H Respiratory Rate 15 12 14 Blood Pressure 165/95 H Blood Pressure Mean 118 Pulse Oximetry 99 97 Oxygen Delivery Method Oxygen Flow Rate Sepsis Recent Fever Within 48 Hours Sepsis New/Unexplained Change in Mental Status Sepsis Action Taken by Nursing 12/20/21 04:03 12/20/21 04:30 12/20/21 05:00 Temperature Temperature Source Pulse Rate 98 H 86 103 H Pulse Rate from SpO2 Sensor 96 H 88 102 H Respiratory Rate 15 16 14 Blood Pressure Blood Pressure Mean Pulse Oximetry 98 96 92 Oxygen Delivery Method Oxygen Flow Rate Sepsis Recent Fever Within 48 Hours Sepsis New/Unexplained Change in Mental Status Sepsis Action Taken by Nursing 12/20/21 05:38 12/20/21 05:50 12/20/21 06:00 Temperature Temperature Source Pulse Rate 88 92 H 100 H Pulse Rate from SpO2 Sensor Respiratory Rate 16 16 12 Blood Pressure 132/83 Blood Pressure Mean 99 Pulse Oximetry 93 Oxygen Delivery Method Oxygen Flow Rate Sepsis Recent Fever Within 48 Hours Sepsis New/Unexplained Change in Mental Status Sepsis Action Taken by Nursing VITALS: Vitals are noted on the nurse's note and reviewed by myself. Vital signs stable. GENERAL: Well-developed, well-nourished, white female who appears in significant discomfort. She has her head turned to the side as changing positions worsens her discomfort. NECK: Cervical spine diffusely tender throughout. Patient is unable to perform range of motion due to discomfort. HEART: Regular rate and rhythm without murmurs gallops or rubs. LUNGS: Clear to auscultation bilaterally without wheezes, rales or rhonchi. No retractions or accessory muscle use. ABDOMEN: Positive normal bowel sounds x 4. Soft, nontender, without masses or organomegaly. No guarding or rebound tenderness. MUSCULOSKELETAL: No muscle atrophy, erythema, or edema noted. Full range of motion in all extremities. NEURO: Patient was alert and oriented to person place and time. CN II through XII grossly intact. No focal neurological deficits. Course Administered Medications Fentanyl Citrate (Fentanyl Citrate 100 Mcg/2 Ml Vial) 50 mcg IV Q15M PRN PRN Reason: Pain Stop: 01/03/22 02:26 Last Admin: 12/20/21 04:22 Dose: 50 mcg Documented by: [id number] Admin: 12/20/21 03:26 Dose: 50 mcg Documented by: [id number] Admin: 12/20/21 03:00 Dose: 50 mcg Documented by: [id number] Hydromorphone HCl (Hydromorphone Inj 0.5 Mg/0.5 Ml Syr) 0.5 mg IV Q30M PRN PRN Reason: Pain Stop: 01/03/22 05:38 Last Admin: 12/20/21 05:45 Dose: 0.5 mg Documented by: [id number] Discontinued Medications Diphenhydramine HCl (Diphenhydramine 50 Mg/Ml Vial) 25 mg IV NOW STA Stop: 12/20/21 02:27 Last Admin: 12/20/21 03:13 Dose: Not Given Documented by: [id number] Fentanyl Citrate (Fentanyl Citrate 100 Mcg/2 Ml Vial) 100 mcg IV NOW STA Stop: 12/20/21 01:41 Last Admin: 12/20/21 01:52 Dose: 100 mcg Documented by: [id number] Hydromorphone HCl (Hydromorphone Inj 1 Mg/Ml Syringe) 1 mg IV NOW STA Stop: 12/20/21 04:28 Last Admin: 12/20/21 04:31 Dose: 1 mg Documented by: [id number] Sodium Chloride (Nss 1000ml) 1,000 mls @ 999 mls/hr IV .Q1H1M MIGUELITO Stop: 12/20/21 02:45 Last Infusion: 12/20/21 03:20 Dose: 0 mls/hr Documented by: [id number] Admin: 12/20/21 01:52 Dose: 999 mls/hr Documented by: [id number] Lorazepam (Ativan) 0.5 mg in 1 mls @ 1 mls/min IV NOW STA Stop: 12/20/21 01:59 Last Admin: 12/20/21 02:02 Dose: 1 mls/min Documented by: [id number] Ioversol (Optiray 320 125ml) 117 ml IV ONCE ONE Stop: 12/20/21 03:45 Last Admin: 12/20/21 03:44 Dose: 117 ml Documented by: [id number] Morphine Sulfate (Morphine Sulfate 4 Mg/Ml 1 Ml Carp\\Vial) 4 mg IV Q30M PRN PRN Reason: Pain Stop: 01/03/22 01:39 Last Admin: 12/20/21 02:20 Dose: 4 mg Documented by: [id number] Ondansetron HCl (Ondansetron Inj 2 Mg/Ml 2 Ml Vial) 4 mg IV NOW STA Stop: 12/20/21 01:41 Last Admin: 12/20/21 01:52 Dose: 4 mg Documented by: [id number] Ondansetron HCl (Ondansetron Inj 2 Mg/Ml 2 Ml Vial) 4 mg IV NOW STA Stop: 12/20/21 05:40 Last Admin: 12/20/21 05:46 Dose: 4 mg Documented by: [id number] Medical Decision Making Differential Diagnosis The differential diagnosis includes, but is not limited to: acute intracranial bleed, meningitis, encephalitis, mass or mass effect, sinusitis, infection, tumor, headache, temporal arteritis and carbon monoxide exposure, and migraine. Laboratory Data Result diagrams: 12/20/21 01:56 12/20/21 01:56 Lab Results 12/20/21 12/20/21 12/20/21 Range/Units 01:56 01:56 01:56 WBC 4.72 L (4.8-10.8) K/uL RBC 4.11 L (4.2-5.4) M/uL Hgb 12.7 (12.0-16.0) g/dL Hct 36.9 L (37-47) % MCV 89.8 (80-100) fL MCH 30.9 (25-34) pg MCHC 34.4 (32-36) g/dL RDW Std Deviation 41.7 (36.4-46.3) fL RDW Coeff of Lucy 12.7 (11.5-14.5) % Plt Count 268 (130-400) K/uL MPV 9.5 (7.4-10.4) fL Immature Gran % (Auto) 0.2 % Neut % (Auto) 51.5 % Lymph % (Auto) 39.0 % Wayne % (Auto) 5.9 % Eos % (Auto) 3.0 % Baso % (Auto) 0.4 % Neut # (Auto) 2.43 (1.4-6.5) K/uL Lymph # (Auto) 1.84 (1.2-3.4) K/uL Wayne # (Auto) 0.28 (0.11-0.59) K/uL Eos # (Auto) 0.14 (0-0.5) K/uL Baso # (Auto) 0.02 (0-0.2) K/uL Immature Gran # (Auto) 0.01 (0.00-0.02) K/uL PT 9.3 (9.0-12.0) Seconds INR 0.9 (0.9-1.1) APTT 23.8 (21.0-31.0) Seconds PTT Ratio 0.9 Sodium 136 (136-145) mmol/L Potassium 3.6 (3.5-5.1) mmol/L Chloride 102 (98-107) mmol/L Carbon Dioxide 22 (21-32) mmol/L Anion Gap 12 H (3-11) BUN 16 (6-23) mg/dl Creatinine 0.73 (0.6-1.2) mg/dl Est Cr Clr Drug Dosing Not Reportable Est GFR ( Amer) 110.5 ml/min Est GFR (Non-Af Amer) 95.4 ml/min BUN/Creatinine Ratio 21.9 H (10-20) Glucose 88 (70-99(Fasting)) mg/dl Calcium 8.9 (8.5-10.1) mg/dl Total Bilirubin 0.3 (0.2-1.0) mg/dl AST 20 (13-39) U/L ALT 15 (7-52) U/L Alkaline Phosphatase 70 (34-104) U/L Troponin I < 0.03 (0-0.04) ng/ml Total Protein 7.2 (6.0-8.3) gm/dl Albumin 4.8 (3.4-5.0) gm/dl Globulin 2.4 L (2.5-4.0) gm/dl Albumin/Globulin Ratio 2.0 (0.9-2) SARS-CoV-2, RNA, NAAT (NEGATIVE) 12/20/21 Range/Units 06:19 WBC (4.8-10.8) K/uL RBC (4.2-5.4) M/uL Hgb (12.0-16.0) g/dL Hct (37-47) % MCV (80-100) fL MCH (25-34) pg MCHC (32-36) g/dL RDW Std Deviation (36.4-46.3) fL RDW Coeff of Lucy (11.5-14.5) % Plt Count (130-400) K/uL MPV (7.4-10.4) fL Immature Gran % (Auto) % Neut % (Auto) % Lymph % (Auto) % Wayne % (Auto) % Eos % (Auto) % Baso % (Auto) % Neut # (Auto) (1.4-6.5) K/uL Lymph # (Auto) (1.2-3.4) K/uL Wayne # (Auto) (0.11-0.59) K/uL Eos # (Auto) (0-0.5) K/uL Baso # (Auto) (0-0.2) K/uL Immature Gran # (Auto) (0.00-0.02) K/uL PT (9.0-12.0) Seconds INR (0.9-1.1) APTT (21.0-31.0) Seconds PTT Ratio Sodium (136-145) mmol/L Potassium (3.5-5.1) mmol/L Chloride (98-107) mmol/L Carbon Dioxide (21-32) mmol/L Anion Gap (3-11) BUN (6-23) mg/dl Creatinine (0.6-1.2) mg/dl Est Cr Clr Drug Dosing Est GFR ( Amer) ml/min Est GFR (Non-Af Amer) ml/min BUN/Creatinine Ratio (10-20) Glucose (70-99(Fasting)) mg/dl Calcium (8.5-10.1) mg/dl Total Bilirubin (0.2-1.0) mg/dl AST (13-39) U/L ALT (7-52) U/L Alkaline Phosphatase (34-104) U/L Troponin I (0-0.04) ng/ml Total Protein (6.0-8.3) gm/dl Albumin (3.4-5.0) gm/dl Globulin (2.5-4.0) gm/dl Albumin/Globulin Ratio (0.9-2) SARS-CoV-2, RNA, NAAT NEGATIVE (NEGATIVE) Imaging Data Radiologist's Impression: Preliminary Findings Only See Final Report For Complete Findings CT HEAD: No acute or focal intracranial abnormality. No change from September 17, 2021. Radiologist:[facility][phone] Preliminary Findings Only See Final Report For Complete Findings CT C SPINE: There has been previous internal fixation of an odontoid process fracture with 2 screws. There is nonunion but no displacement. Wires are seen fusing the spinous processes of C1-C3. Lateral screws are seen extending through C2. The screws pass through the late ral aspects of the transverse foramina bilaterally, worse on the left. No acute fracture. No misalignment or central canal narrowing. No significant change from February 09, 2021.Radiologist:[facility] Lopez [facility]:[phone] Preliminary Findings Only See Final Report For Complete Findings CTA HEAD: No aneurysm, is severe stenosis or major intracranial branch occlusion. Radiologist:[facility] Lopez [facility]:[phone] Preliminary Findings Only See Final Report For Complete Findings CTA NECK: Comparison is made to a prior study dated September 17, 2021. As on the prior study, the left vertebral artery becomes very small at the C2/C3 level. There appears to be only a faint enhancement of the left vertebral arter y at the level of the left C2 transverse foramen. The foramen in this region is narrowed by an orthopedic screw along the lateral aspect. The left vertebral artery does not appear completely occluded, as it did on the prior exam. A focal dissection flap is not seen in the left vertebral artery proximal or distal to this level. Radiologist:[facility] Lopez [facility]:[phone] ECG Data Attestation: I personally reviewed and interpreted this ECG as follows: Additional Comments: Normal sinus rhythm @[address] elevation Normal ECG When compared with ECG of 17-SEP-2021 11:08, No significant change was found MDM Narrative Physical exam and history were performed. Nursing notes, EMR, and Medication List were personally reviewed. Patient appears to have significant left-sided head and neck pain. She is very uncomfortable on examination. IV access was established and labs were obtained. She was given IV fentanyl, IV morphine, and IV Zofran. CT scans of the head and neck were ordered. An order was placed for continuous cardiac monitoring. The monitor shows a rate of 100 with normal sinus rhythm. The patient's blood work is as above and was reviewed. She does not have a significantly elevated white blood cell count, gross anemia, bandemia, or significant electrolyte imbalance. INR is 0.9. Transaminases are not diagnostic. Troponin x1 is negative. Covid is negative. CT scans were reviewed by myself and radiology, and do not show obvious acute process. There is concern that she has hardware in the area of her left vertebral artery, and this may be contributing to some of her discomfort, however there is no evidence of dissection at this time. The patient was reevaluated multiple times with course of her stay. It took a large amount of pain medication to get her comfortable. After the fentanyl and morphine she did become hypoxic and was placed on nasal cannula. She did receive IV Dilaudid, which seems to have improved her discomfort the most. Despite multiple doses of analgesics she continues to appear quite uncomfortable. At this time she does not appear well for discharge home. The case was discussed with the on-call hospitalist who will evaluate the patient here in the ER. Please see their dictation for further patient course, plan, and disposition. The chart was completed utilizing [employer] Voice Recognition Software. Grammatical errors, random word insertions, pronoun errors, and incomplete sentences are an occasional consequence of this system due to software limitations, ambient noise, and hardware issues. Any formal questions or concerns about the content, text, or information contained within the body of this dictation should be directly addressed to the provider for clarification. . Impression & Plan Intractable pain, Neck pain on left side Discharge Plan Visit Data Chief Complaint: Neck Injury/Pain Stated Complaint: NECK LOCKED UP S/P NECK SURGERY ED Provider: Janie Atwood ED Midlevel Provider: Davey Oconnell Discharge Problem: Intractable pain, Neck pain on left side Patient Disposition: Home - Self-Care Condition: Good Forms Stand Alone Forms: [facility], Virtual Emergency Department, Important Visit Information Prescriptions Prescriptions: No Action aspirin 325 mg Tablet 325 mg PO DAILY RF: 0 lisinopril 20 mg tablet 20 mg PO BID RF: 0 spironolactone 50 mg tablet 50 mg PO BID RF: 0 gabapentin 100 mg Capsule 200 mg PO HS Qty: 30 RF: 0 acetaminophen [Tylenol Extra Strength] 500 mg tablet 1,000 mg PO Q8 PRN (Reason: Pain) RF: 0 Referrals Referrals: Anthony Babb MD [Primary Care Provider] -
[2021-12-20 02:58] LABS: Troponin I < 0.03 ng/ml (0-0.04)
[2021-12-20] MEDS: fentaNYL citrate 100 MCG/2 ML VIAL IV PRN ×3 (03:00→04:22)
[2021-12-20 03:13] LABS: Alanine Aminotransferase 15 U/L (7-52); Albumin Level 4.8 gm/dl (3.4-5.0); Alkaline Phosphatase 70 U/L (34-104); Anion Gap 12 (3-11); Aspartate Aminotransferase 20 U/L (13-39); BUN Creatinine Ratio 21.9 (10-20); Bilirubin,Total 0.3 mg/dl (0.2-1.0); Blood Urea Nitrogen 16 mg/dl (6-23); Calcium 8.9 mg/dl (8.5-10.1); Carbon Dioxide 22 mmol/L (21-32); Chloride 102 mmol/L (98-107); Est GFR (African American) 110.5 ml/min; Est GFR (Non-African American) 95.4 ml/min; Globulin 2.4 gm/dl (2.5-4.0); Glucose 88 mg/dl (70-99(Fasting)); Potassium 3.6 mmol/L (3.5-5.1); Sodium 136 mmol/L (136-145); Total Protein 7.2 gm/dl (6.0-8.3)
[2021-12-20] MEDS ORDERED: OPTIRAY 320 125ml IV ONE (03:44)
[2021-12-20] MEDS ORDERED: HYDROmorphone INJ 1 MG/ML SYRINGE IV STA (04:27)
[2021-12-20] MEDS ORDERED: HYDROmorphone INJ 0.5 MG/0.5 ML SYR IV PRN (05:39)
--- NOTE | 2021-12-20 06:45 | History & Physical Report ---
Date of Service December 20, 2021 Assessment & Plan (1) TIA (transient ischemic attack): Plan: Transient R visual symptoms Rule out recurrent CVA hx right cerebellar stroke secondary to perioperative left vertebral artery dissection secondary to left screw placement (C2 vertebra) hx traumatic C1-C2 fracture status post surgery (05/2020) ? Aspirin failure hypertension, slightly elevated cervical dysplasia status post surgery mood disorder OBS Medical telemetry Neurochecks Plavix for now for possible aspirin failure MRI brain, TTE for stroke work-up Neurology consult Re: TIA Analgesia, may benefit from Pain Management consultation if pain continues to be intractable. Follow official imaging results Patient requests for her [facility] orthopedic surgeon (Dr. Randolph) to be updated of her imaging results and to obtain additional recommendations from his standpoint. DVT prophylaxis per Lovenox subcu Full code Text document was generated using [employer] voice recognition software. It may contain grammatical or spelling errors. Kindly contact undersigned for clarification of any documentation item in question. History of Present Illness Chief Complaint: Intractable left neck pain Primary Care Provider: Anthony Babb MD History obtained from patient, family, and records. Medical history significant for hypertension, migraine, traumatic C1-C2 fracture status post surgery (05/2020), right cerebellar stroke secondary to perioperative left vertebral artery dissection secondary to left screw placement (C2 vertebra), cervical dysplasia status post surgery, mood disorder. Last confinement August 2021 for intractable occipital headache/neck pain. Patient evaluated by Neurology. Discharged on gabapentin course. Patient referred to [facility] neurosurgeon (Dr. Naqvi) by patient's [facility] orthopedist (Dr. Randolph) for evaluation of culprit C2 screw causing left vertebral artery occlusion. Outpatient diagnostic cervical cerebral angiogram recommended but was rescheduled to December, due to patient's COVID-19 illness last month. Last month, patient noted increase frequency/severity of left achy occipital/neck pain. No fever, no chills. No chest pain, no S OB. No arm or leg weakness or incontinence symptoms. 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 Patient went home after her shift and felt better after sleeping. Last night she noted severe excruciating sharp pain on the left upper neck worse with motion. No vision abnormalities. No arm or leg weakness. Patient brought to the ER by family for evaluation. Multiple narcotics administered at the ER for intractable left neck pain. Medical History as above Surgical History : Breast lesion excision, vascular procedure, partial hysterectomy with partial removal of pelvic structures, neck spine fusion with graft surgery, odontoid fracture surgery Family History : Brain cancer, DM, hypertension Personal/Social history : Non-smoker, no EtOH intake, ER nurse Allergies Allergy/AdvReac Type Severity Reaction Status Date / Time morphine Allergy Mild Rash Verified 12/20/21 07:23 Influenza Virus Vaccines Allergy Unknown Unknown Verified 12/20/21 01:54 thimerosal Allergy Unknown Unknown Verified 12/20/21 01:54 promethazine AdvReac Intermediate MADE ARM Verified 12/20/21 01:54 TWITCH FOR 6 HRS; HAS TOLERATED COMPAZINE W/O RXN fluoxetine AdvReac Mild "SHAKES" Verified 12/20/21 01:54 Home Medications Medication Instructions Recorded Confirmed Type aspirin 325 mg tablet 325 mg PO DAILY 02/09/21 12/20/21 History lisinopril 20 mg tablet 20 mg PO BID 02/09/21 12/20/21 History spironolactone 50 mg tablet 50 mg PO BID 02/09/21 12/20/21 History gabapentin 100 mg capsule 200 mg PO HS #30 cap 09/19/21 12/20/21 Rx acetaminophen 500 mg tablet 1,000 mg PO Q8 PRN 12/20/21 12/20/21 History (Tylenol Extra Strength) Past Med/Surg History Medical History Depression GERD (gastroesophageal reflux disease) History of CVA (cerebrovascular accident) 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 History of stent insertion of renal artery Hx of migraines Hypertension IBS (irritable bowel syndrome) Renal artery stenosis Restless leg syndrome Surgical History History of hysterectomy Hx of fusion of cervical spine Family History Other Diabetes Hypertension Social History Smoking Status: Never smoker Hx Alcohol Use: Yes Alcohol type: wine Hx Substance Use: No Preferred Language: Belarusian Communication Ability: Effective Deputy Program Manager Required: No Beliefs That Will Affect Care: None Current Living Situation: Significant Other Feels Safe at Home: Yes Assistive Devices: Glasses Review of Systems Review of Systems: As per HPI, all 10 systems reviewed, all other ROS negative Physical Exam Physical Exam: GENERAL: Slightly uncomfortable, pleasant, looks younger for stated age, no respiratory distress SKIN: Normal color, warm HEENT: Left occipital tenderness [place] palpebral conjunctivae, no ptosis, dry buccal mucosa NECK : Limited mobility, left upper cervical tenderness CHEST : CTA, no tenderness HEART : RRR, no obvious murmurs ABDOMEN: Some distention, nontender EXTREMITIES : No LE swelling/tenderness, no other conspicuous deformities noted NEUROLOGIC : Coherent, no facial asymmetry, no other gross focality Results & Data Results & Data ([facility]) Vital Signs (Past 12 Hours) Vital Signs Temp Pulse Resp BP Pulse Ox 12/20/21 06:00 100 H 12 12/20/21 05:50 92 H 16 132/83 93 12/20/21 05:38 88 16 12/20/21 05:00 103 H 14 92 12/20/21 04:30 86 16 96 12/20/21 04:03 98 H 15 98 12/20/21 03:36 106 H 14 165/95 H 97 12/20/21 03:35 110 H 12 12/20/21 03:00 92 H 15 99 12/20/21 02:30 105 H 20 151/85 H 98 12/20/21 02:00 88 12 159/100 H 97 12/20/21 01:56 98 12/20/21 01:54 100 H 22 154/94 H 12/20/21 01:53 85 L 12/20/21 01:31 36.7 C 116 H 18 165/[address] head initial read: No acute or focal intracranial abnormality. CT cervical spine initial read: There has been previous internal fixation of an odontoid process fracture with 2 screws. There is nonunion but no displacement. Wires are seen fusing the spinous processes of C1-C3. Lateral screws are seen extending through C2. The screws pass through the lateral aspects of the transverse foramina bilaterally, worse on the left. No acute fracture. No misalignment or central canal narrowing. CT angio head initial read: No aneurysm, is severe stenosis or major intracranial branch occlusion CT angio neck initial read: As on the prior study, the left vertebral arterybecomes verysmall at the C2/C3 level. There appears to be onlya faint enhancement of the left vertebral arteryat the level of the left C2 transverse foramen. The foramen in this region is narrowed byan orthopedic screwalong the lateral aspect. The left vertebral arterydoes not appear completelyoccluded, as it did on the prior exam. Afocal dissection flap is not seen in the left vertebral arteryproximal or distal to this level. EKG as per my interpretation : Rate 85, NSR, normal axis, T wave inversion septal leads
--- NOTE | 2021-12-20 07:21 | CT Scan Report ---
UNENHANCED CT OF THE BRAIN; CT ANGIOGRAM OF THE BRAIN; CT ANGIOGRAM OF THE NECK CLINICAL HISTORY: Headache. Neck pain. 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 COMPARISON STUDY: CT angiogram of the head and neck dated 09/17/2021. TECHNIQUE: Unenhanced axial CT scan of the brain is performed. Subsequently, following the IV adminis tration of 117 of [address] [address], CT angiogram of the head and neck was performed from the aortic arch t o the vertex. Images are reviewed in the axial, sagittal, and coronal planes. 3-D MIPS images are cre ated and assessed. IV contrast was administered without complication. All measurements were calculate d based on NASCET criteria. A dose lowering technique was utilized adhering to the principles of ALA RA. FINDINGS: Brain parenchyma: There is a small chronic infarct in the right cerebellar hemisphere. There is no he morrhage, mass effect, or evidence of acute territorial ischemia by CT criteria. There is no evidence of enhancing mass lesion on the angiogram phase images. The ventricles, sulci, and cisterns are norm al in configuration. Power-white matter differentiation is preserved. No extra-axial fluid collection is seen. Thoracic aorta: Visualized portions of the thoracic aorta are normal in caliber. The aortic arch demo nstrates standard 3-vessel anatomy. Right carotid arterial system: The right common carotid artery is widely patent, as are the right int ernal and external carotid arteries. Left carotid arterial system: The left common carotid artery is widely patent, as are the left internet application developer al and external carotid arteries. Minimal plaque is noted in the carotid bulb. Vertebral arteries: The right vertebral artery is widely patent and dominant. The proximal and mid po rtions of the left vertebral artery are patent. There is near-complete to complete thrombosis of the distal left cervical vertebral artery at the level of C2, best seen on image #226. These findings may be related to underlying dissection. The left vertebral artery is reconstituted at the level of C1. An interpedicular screw impinges on the left transverse foramen at the level of C2. Subclavian arteries: Widely patent bilaterally. Intracranial vasculature: There is a large right posterior communicating artery. The internal carotid arteries are patent at the skull base, as are the anterior and middle cerebral arteries bilaterally. The intracranial vertebral arteries and the basilar artery are patent, as are the posterior cerebral arteries. The right vertebral artery is dominant. There is no aneurysm, high-grade stenosis, or foca l vessel cut off seen throughout the intracranial circulation. Jugular veins: Patent bilaterally. Dural sinuses: Patent. Lung apices: Partially visualized upper lobe lung parenchyma appears clear. Soft tissues: The visualized pharyngeal soft tissues are normal in appearance noting angiographic pha se technique. The oropharyngeal airway appears widely patent. The salivary and thyroid glands are nor mal in appearance. No cervical lymphadenopathy is seen. Skeletal structures: The calvarium appears intact. 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 There are also bilateral interpedic ular screws at C2 with cerclage wires in the posterior elements. This is unchanged from previous. The cervical spine is otherwise maintained noting mild multilevel spondylosis. Orbits: The bony orbits are intact. Orbital contents are normal as visualized. Sinuses and mastoids: The paranasal sinuses are clear. The mastoid air cells are well pneumatized. IMPRESSION: 1. There is no hemorrhage, mass effect, or evidence of acute territorial ischemia by CT criteria. 2. Unremarkable CT angiogram of the brain. 3. There has been no significant change in the appearance of the cervical left vertebral artery as co mpared to 09/17/2021, likely representing chronic dissection with a short segment of near-complete to complete occlusion at the level of C2. 4. The carotid arteries and the right vertebral artery are widely patent. 5. Chronic posttraumatic and postoperative changes of C2. This is also similar to previous. ACT 112: Negative or not required by law.' Electronically signed by: Cristian Ramirez M.D. 12/20/2021 7:20 AM
[2021-12-20] MEDS ORDERED: LORazepam 0.25 MG/0.5 ML VIAL IV PRN ×2 (07:23→07:45)
[2021-12-20] MEDS ORDERED: METOCLOPRAMIDE HCL INJ 5 MG/ML 2 ML VIAL IV STA (07:23)
[2021-12-20] MEDS ORDERED: IBUPROFEN 200 MG TAB PO PRN (07:23)
[2021-12-20] MEDS ORDERED: CLOPIDOGREL BISULFATE 75 MG TAB PO ONE (07:45)
--- NOTE | 2021-12-20 08:08 | CT Scan Report ---
CT cervical spine wo con CT DOSE: 1317.34 mGy.cm CLINICAL HISTORY: 51 years-old Female with pain, surgery. Acute neck pain with history of prior cerv ical spine surgery COMPARISON: CTA of the neck 09/17/2021 TECHNIQUE: Multiple axial CT images of the cervical spine were obtained without contrast. A dose low ering technique was utilized adhering to the principles of ALARA. FINDINGS: Ununited type II odontoid process fracture with 2 intact cannulated screws. Lucency surroun ding the screws is again noted suggestive of hardware loosening. Screws are again noted within the bi lateral C2 facets extending into the C2-C3 facet joints which appear intact. Mild lucency also is not ed surrounding the screws which traverse the bilateral vertebral foramina, left greater than right. C erclage wires are noted within the C1-C2 posterior elements. Mild to moderate intervertebral disc spa ce narrowing at C6 or C7 with mostly mild multilevel spondylitic spurring and uncovertebral hypertrop hy. Moderate to severe multilevel facet arthrosis. Bony fusion involves the fractured odontoid proces s fragment with the anterior arch of C1. Multilevel neural foraminal narrowing. Exophytic parenchyma versus nodule of the inferior posterior right thyroid measuring 1.7 cm. No preve rtebral edema. Mild calcified plaque of the left carotid bulb. No pneumothorax. IMPRESSION: 1. No acute cervical spine fracture or subluxation. 2. 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 Unchanged postoperative findings with suggested hardware loosening. ACT 112: Negative or not required by law. The above report was generated using voice recognition software. It may contain grammatical, syntax o r spelling errors. Electronically signed by: Quentin Cheng M.D. 12/20/2021 8:06 AM
--- NOTE | 2021-12-20 09:25 | Electrocardiogram Report ---
Test Reason : Blood Pressure : / mmHG Vent. Rate : 087 BPM Atrial Rate : 087 BPM P-R Int : 164 ms QRS Dur : 088 ms QT Int : 388 ms P-R-T Axes : 063 017 048 degrees QTc Int : 466 ms Normal sinus rhythm Normal ECG When compared with ECG of 17-SEP-2021 11:08, No significant change was found Confirmed by Blake Gates ([id number]) on 12/20/2021 9:25:34 AM Referred By: REFERRED SELF Confirmed By:Blake Gates
--- NOTE | 2021-12-20 10:06 | Magnetic Resonance Report ---
MR brain wo con HISTORY: 51 years-old Female tia acute strokelike symptoms with blurry vision. History of prior righ t cerebellar infarct and left frontal lobe developmental venous anomaly. COMPARISON: CT head and cervical spine studies of same day, brain MRI 09/18/2021 TECHNIQUE: Multiplanar multisequence MRI of the brain was obtained without the use of IV contrast. FINDINGS: Vessel Scrapper localizer images demonstrate no gross extracranial abnormality. There is no restricted diffusio n to suggest acute or subacute infarct. Unremarkable midline structures. Postoperative changes of the cervical spine with chronic C2 fracture, better seen on the comparison CT study of same day. There is no acute intracranial hemorrhage, midline shift, abnormal extra-axial collection, hydrocepha sherine or intracranial mass. Left frontal lobe developmental venous anomaly is redemonstrated. Chronic l acunar infarcts of the right cerebellar hemisphere are unchanged. Mild scattered T2/FLAIR hyperintens e foci noted throughout the white matter which appears similar to prior, suggestive of mild chronic m icrovascular ischemic disease. Cerebral venous sinuses and major arterial flow voids appear patent. Mastoid air cells and paranasal sinuses are clear. The skull, orbits and soft tissues are unremarkable. IMPRESSION: 1. No acute intracranial abnormality. No acute or subacute infarct. 2. Chronic findings as above. ACT 112: Negative or not required by law. The above report was generated using voice recognition software. It may contain grammatical, syntax o r spelling errors. Electronically signed by: Quentin Cheng M.D. 12/20/2021 10:05 AM
[2021-12-20] MEDS ORDERED: SPIRONOLACTONE 25 MG TAB PO SCH (10:31)
[2021-12-20] MEDS ORDERED: LACTATED RINGER'S 1,000 ML IV ONE (10:31)
--- NOTE | 2021-12-20 11:10 | Neurology Consultation ---
Date of Consultation December 20, 2021 Assessment & Plan (1) Neck pain on left side: 1. pervious surgery with possible screw involvement 2. set up to have angio 12/27/2021 3. increase gabapentin from 200 mg hs by 100 mg every 3 days until on 200 mg TID, can increase further if needed 4. continue aspirin 325 mg daily 5. would contact Dr Randolph for further instructions will be available for further questions concerns as needed follow up with neurology PRN (2) History of CVA (cerebrovascular accident): 1. continue aspirin 325 mg daily 2. continue HTN, HLD, LDL <70 3. MRI no new stroke 4. CTA head/neck no acute findings 5. TTE- ASD low risk for embolic event Supervising Physician Co-Signing Physician Notes Patient was seen and examined. Discussed with Dalia Tovar PA-c and agree with recommendations as noted. A 51 year old woman with history of previous neck trauma s/p fall with cervical fixation. Complicated by cerebellar stroke and left vertebral dissection (chronc) on ASA. Has been suffering from neck and headaches. Has history of migraines although notes this is different. Pain is posterior and positional. On low dose Gabapentin. Following with neurosurgery. CTA head and neck shows chronic left vertebral dissectin. MRI negative for acute stroke. On examine no tenderness to palpation in greater occipital nerve area. Differential diagnosis includes occipital neuralgia although positional component would suggest against this. Continue home ASA. Recommend increasing Gabapentin as tolerated. Follow up with NSG as planned. Discussed addition of me dicaitons for possible migriane component although patient declined at this time. FOllow up with NEuro PRN for now. Please call with any additional questions or concerns. 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 She went home and was able to sleep and get comfortable. She was watching television this evening when she had acute onset 10/10 left-sided neck pain and left side posterior head pain.She has a history of neck surgery, and there is concerned that some of her hardware may be impinging on a nerve or blood vessel. She does have history of CVA in the perioperative phase. There is also old history of each febrile artery dissection that was treated with anticoagulants for a year. She has not had any numbness or tingling into her arms or legs. She is now having pain in her neck which is positional. She also had some graying out of vision x 2 that lasted about 15 minute both times. denies CP, SOB, abdominal pain, N, V. some swallowing issues with water. she has been out of bed to the bathroom feeling somewhat woozy Allergies Allergy/AdvReac Type Severity Reaction Status Date / Time morphine Allergy Mild Rash Verified 12/20/21 07:23 Influenza Virus Vaccines Allergy Unknown Unknown Verified 12/20/21 01:54 thimerosal Allergy Unknown Unknown Verified 12/20/21 01:54 promethazine AdvReac Intermediate MADE ARM Verified 12/20/21 01:54 TWITCH FOR 6 HRS; HAS TOLERATED COMPAZINE W/O RXN fluoxetine AdvReac Mild "SHAKES" Verified 12/20/21 01:54 Home Medications Medication Instructions Recorded Confirmed Type aspirin 325 mg tablet 325 mg PO DAILY 02/09/21 12/20/21 History lisinopril 20 mg tablet 20 mg PO BID 02/09/21 12/20/21 History spironolactone 50 mg tablet 50 mg PO BID 02/09/21 12/20/21 History gabapentin 100 mg capsule 200 mg PO HS #30 cap 09/19/21 12/20/21 Rx acetaminophen 500 mg tablet 1,000 mg PO Q8 PRN 12/20/21 12/20/21 History (Tylenol Extra Strength) Patient History Medical History Depression GERD (gastroesophageal reflux disease) History of CVA (cerebrovascular accident) 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 History of stent insertion of renal artery Hx of migraines Hypertension IBS (irritable bowel syndrome) Renal artery stenosis Restless leg syndrome Surgical History History of hysterectomy Hx of fusion of cervical spine Family History Other Diabetes Hypertension Social History Smoking Status: Never smoker Second Hand Exposure: No; Do You Dip or Chew Tobacco: No; Tobacco Cessation Education Requested by Patient: No Hx Alcohol Use: Yes Alcohol type: wine Hx Substance Use: No Preferred Language: Bengali Communication Ability: Effective Bindery Machine Feeder Offbearer Required: No Beliefs That Will Affect Care: None Current Living Situation: Significant Other Other Information That Helps Us Care for You: No Feels Safe at Home: Yes Safety Concerns: Feels Safe At This Time Assistive Devices: None Review of Systems Review of Systems: All systems reviewed & are unremarkable except as noted in HPI & below Physical Exam Physical Exam: Physical Exam: Constitutional: appearance nourished, healthy and normal Ears, Nose, Mouth and Throat: mucous membranes moist, no injection and skin normal, eyes normal Cardiovascular: normal S-1 and S-2 and regular rate and rhythm Respiratory: clear to auscultation (CTA) and no rales, rhonchi or wheeze Musculoskeletal: no peripheral edema and good distal pulses Skin: no stigmata of neurocutaneous disease noted and normal and intact Eyes: extraocular muscles intact (EOMI) and pupils equal, round and reactive to light (PERRL) NEUROLOGIC EXAMINATION: Mental status: Alert and interactive Oriented to full date and location Oriented to person Speech fluent with no evidence of aphasia Cranial Nerves smile eye brow raise symmetric Reflexes: Deep tendon reflexes were symmetrical and graded 2/5. Sensory: no sensory deficits, light cool touch Coordination: finger to nose Gait/Stance: Posture lying in bed Motor: Negative for pronator drift of out stretched arms with eyes closed. 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/5, bilaterally hip flex 5/5 bilaterally Results & Data ([facility]) Vital Signs (Past 12 Hours) Vital Signs Temp Pulse Resp BP Pulse Ox 12/20/21 10:06 72 18 130/75 95 12/20/21 06:00 100 H 12 12/20/21 05:50 92 H 16 132/83 93 12/20/21 05:38 88 16 12/20/21 05:00 103 H 14 92 12/20/21 04:30 86 16 96 12/20/21 04:03 98 H 15 98 12/20/21 03:36 106 H 14 165/95 H 97 12/20/21 03:35 110 H 12 12/20/21 03:00 92 H 15 99 12/20/21 02:30 105 H 20 151/85 H 98 12/20/21 02:00 88 12 159/100 H 97 12/20/21 01:56 98 12/20/21 01:54 100 H 22 154/94 H 12/20/21 01:53 85 L 12/20/21 01:31 36.7 C 116 H 18 165/98 H 97 Laboratory Results Abnormal lab results 12/20/21 12/20/21 12/20/21 Range/Units 01:56 01:56 01:56 WBC 4.72 L (4.8-10.8) K/uL RBC 4.11 L (4.2-5.4) M/uL Hct 36.9 L (37-47) % Anion Gap 12 H (3-11) BUN/Creatinine Ratio 21.9 H (10-20) Magnesium 1.4 L (1.7-2.4) mg/dl Globulin 2.4 L (2.5-4.0) gm/dl Diagnostic Findings CTA head/neck-there is no hemorrhage, mass effect, or evidence of acute territorial ischemia by CT criteria. Unremarkable CT angiogram of the brain. 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 The carotid arteries and the right vertebral artery are widely patent. Chronic posttraumatic and postoperative changes of C2. This is also similar to previous. CT neck-No acute cervical spine fracture or subluxation. . 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 Unchanged postoperative findings with suggested hardware loosening. MRI brain-No acute intracranial abnormality. No acute or subacute infarct. Chronic findings as above. TTE- 60-65% EF ASD aneurysmal low risk for emboli
[2021-12-20] MEDS: ASPIRIN 325 MG ECTAB PO SCH (11:43)
[2021-12-20] MEDS: ENOXAPARIN INJ 40 MG/0.4 ML SYR SQ SCH (11:43)
[2021-12-20] MEDS: lisinopril 20 MG TAB PO SCH ×2 (11:44→21:14)
[2021-12-20] MEDS: SPIRONOLACTONE 25 MG TAB PO SCH ×2 (11:44→17:09)
[2021-12-20] MEDS: MAGNESIUM SULFATE / D5W 1 GM/100 ML BAG IV SCH ×2 (13:09→15:14)
[2021-12-20] MEDS: HYDROmorphone INJ 0.5 MG/0.5 ML SYR IV PRN ×2 (15:24→21:17)
[2021-12-20] MEDS ORDERED: GABAPENTIN 100 MG CAP PO ONE (16:15)
--- NOTE | 2021-12-20 16:27 | Hospitalist Progress Note ---
Date of Service December 20, 2021 Assessment & Plan (1) TIA (transient ischemic attack): Plan: Transient Right visual symptoms Less likely TIA Likely related to nerve impingement due to hardware from prior surgery 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 No acute or subacute infarct. Chronic findings as above. --CT Cervical Spine:No acute cervical spine fracture or subluxation. 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 Unchanged postoperative findings with suggested hardware loosening. --Head/Neck CTA:There is no hemorrhage, mass effect, or evidence of acute territorial ischemia by CT criteria. Unremarkable CT angiogram of the brain. 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 The carotid arteries and the right vertebral artery are widely patent. Chronic posttraumatic and postoperative changes of C2. This is also similar to previous. --ECHO reviewed --Lipid penal pending --Appreciate neurology input Continue aspirin Increase gabapentin as able to 200 mg 3 times daily Plan to discuss with [facility] orthopedist, Dr. Randolph--awaiting Input Pain control Hypertension Stable Continue lisinopril Cervical dysplasia S/P Surgery Mood disorder Stable DVT Px: Lovenox SQ Code Status Full code Admission and Anticipated Discharge Date Admission Date: December 20, 2021 Subjective Patient is seen and examined at bedside States having occipital/neck pain this morning Also states having generalized tiredness Discussed with neurology today Denies any recurrence of vision loss Also denies any slurred speech, facial deformity, focal weakness, chest pain, shortness of breath Review of Systems Review of Systems: All systems reviewed & are unremarkable except as noted in Subjective Physical Exam Physical Exam: Physical Exam: Vitals signs as noted above General Appearance:Moderately built and nourished, no apparent distress Head: normocephalic, Atraumatic Eyes: normal inspection, EOMI Neck: supple, Trachea midline Respiratory/Chest: Normal breath sounds, CTA, No accessory muscle use Cardiovascular: S1, S2, No murmur Abdomen/GI:Soft, Non tender, Bowel sounds present Extremities/Musculoskeletal:normal inspection, no edema Neurologic/Psych:AAOX3, grossly no focal neurological deficits Skin: normal color, warm Results & Data Results & Data ([facility]) Vital Signs (Past 12 Hours) Vital Signs Temp Pulse Pulse Resp BP BP Pulse Ox 12/20/21 14:15 88 12/20/21 11:16 36.4 C L 86 16 136/86 95 12/20/21 10:33 84 12/20/21 10:15 36.4 C L 86 16 136/86 95 12/20/21 10:06 72 18 130/75 95 12/20/21 06:00 100 H 12 12/20/21 05:50 92 H 16 132/83 93 12/20/21 05:38 88 16 12/20/21 05:00 103 H 14 92 12/20/21 04:30 86 16 96 Laboratory Results Short CBC 12/20/21 Range/Units 01:56 WBC 4.72 L (4.8-10.8) K/uL Hgb 12.7 (12.0-16.0) g/dL Hct 36.9 L (37-47) % Plt Count 268 (130-400) K/uL BMP 12/20/21 01:56 Sodium 136 Potassium 3.6 Chloride 102 Carbon Dioxide 22 BUN 16 Creatinine 0.73 Glucose 88 Calcium 8.9 Cardiac Enzymes 12/20/21 Range/Units 01:56 Troponin I < 0.03 (0-0.04) ng/ml Liver Function 12/20/21 Range/Units 01:56 Total Bilirubin 0.3 (0.2-1.0) mg/dl AST 20 (13-39) U/L ALT 15 (7-52) U/L Alkaline Phosphatase 70 (34-104) U/L Albumin 4.8 (3.4-5.0) gm/dl
[2021-12-20] MEDS: oxyCODONE HCL IR 5 MG TAB (IMMEDIATE RELEASE) PO PRN (17:51)
[2021-12-20] MEDS: DOCUSATE SODIUM 100 MG CAP PO SCH (21:13)
[2021-12-20] MEDS: GABAPENTIN 100 MG CAP PO SCH (21:14)
[2021-12-20] MEDS: KETOROLAC TROMETHAMINE 15 MG/ML VIAL IV PRN (21:20)
[2021-12-20] MEDS: METOCLOPRAMIDE HCL INJ 5 MG/ML 2 ML VIAL IV PRN (21:23)
[2021-12-21] MEDS: HYDROmorphone INJ 0.5 MG/0.5 ML SYR IV PRN ×3 (03:23→19:28)
[2021-12-21 07:09] LABS: Basophils # (auto) 0.02 K/uL (0-0.2); Basophils % (auto) 0.4 %; Eosinophils # (auto) 0.13 K/uL (0-0.5); Eosinophils % (auto) 2.8 %; Hematocrit (blood only) 34.9 % (37-47); Hemoglobin 11.8 g/dL (12.0-16.0); Lymphocytes # (auto) 1.64 K/uL (1.2-3.4); Lymphocytes % (auto) 34.9 %; Mean Corpuscular Hemoglobin 30.6 pg (25-34); Mean Corpuscular Hgb Conc 33.8 g/dL (32-36); Mean Corpuscular Volume 90.4 fL (80-100); Mean Platelet Volume 9.7 fL (7.4-10.4); Monocytes # (auto) 0.44 K/uL (0.11-0.59); Monocytes % (auto) 9.4 %; Neutrophils # (auto) 2.47 K/uL (1.4-6.5); Neutrophils % (auto) 52.5 %; Platelet Count 240 K/uL (130-400); RDW Standard Deviation 42.9 fL (36.4-46.3); Red Blood Count 3.86 M/uL (4.2-5.4)
[2021-12-21 07:34] LABS: BUN Creatinine Ratio 34.8 (10-20); Calcium 8.6 mg/dl (8.5-10.1); Chol HDL Ratio 2.3 (0-5); Creatinine Clr Calc Pharmacy 105.8 ml/min; Est GFR (African American) 118.5 ml/min; Est GFR (Non-African American) 102.3 ml/min; Magnesium 1.8 mg/dl (1.7-2.4)
[2021-12-21] MEDS: oxyCODONE HCL IR 5 MG TAB (IMMEDIATE RELEASE) PO PRN ×2 (07:37→15:53)
[2021-12-21] MEDS: METOCLOPRAMIDE HCL INJ 5 MG/ML 2 ML VIAL IV PRN (07:37)
[2021-12-21] MEDS: ASPIRIN 325 MG ECTAB PO SCH (08:27)
[2021-12-21] MEDS: ENOXAPARIN INJ 40 MG/0.4 ML SYR SQ SCH (08:27)
[2021-12-21] MEDS: lisinopril 20 MG TAB PO SCH ×2 (08:28→20:22)
[2021-12-21] MEDS: SPIRONOLACTONE 25 MG TAB PO SCH ×2 (08:28→16:45)
[2021-12-21] MEDS: DOCUSATE SODIUM 100 MG CAP PO SCH ×2 (08:31→20:22)
[2021-12-21] MEDS ORDERED: GABAPENTIN 100 MG CAP PO SCH (09:00)
[2021-12-21] MEDS ORDERED: CLOPIDOGREL BISULFATE 75 MG TAB PO SCH (09:00)
[2021-12-21] MEDS: KETOROLAC TROMETHAMINE 15 MG/ML VIAL IV PRN ×3 (10:56→23:09)
[2021-12-21] MEDS: ACETAMINOPHEN 325 MG TAB PO PRN ×2 (12:21→21:24)
[2021-12-21] MEDS ORDERED: oxyCODONE HCL IR 5 MG TAB (IMMEDIATE RELEASE) PO PRN (17:05)
--- NOTE | 2021-12-21 17:09 | Hospitalist Progress Note ---
Date of Service December 21, 2021 Assessment & Plan (1) TIA (transient ischemic attack): Plan: Transient Right visual symptoms Less likely TIA Likely related to nerve impingement due to hardware from prior surgery 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 No acute or subacute infarct. Chronic findings as above. --CT Cervical Spine:No acute cervical spine fracture or subluxation. 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 Unchanged postoperative findings with suggested hardware loosening. --Head/Neck CTA:There is no hemorrhage, mass effect, or evidence of acute territorial ischemia by CT criteria. Unremarkable CT angiogram of the brain. 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 The carotid arteries and the right vertebral artery are widely patent. Chronic posttraumatic and postoperative changes of C2. This is also similar to previous. --ECHO reviewed --Lipid penal pending --Appreciate neurology input Continue aspirin Increase gabapentin as able to 200 mg 3 times daily Discussed with [facility] orthopedist, Dr. Randolph--No plan for intervention: Recommends outpatient follow up Pain control Hypertension Stable Continue lisinopril Cervical dysplasia S/P Surgery Mood disorder Stable DVT Px: Lovenox SQ Code Status Full code Admission and Anticipated Discharge Date Admission Date: December 20, 2021 Subjective Patient is seen and examined at bedside Occipital/neck pain is better Also reports nausea Denies any recurrence of vision loss No other complaints Review of Systems Review of Systems: All systems reviewed & are unremarkable except as noted in Subjective Physical Exam Physical Exam: Physical Exam: Vitals signs as noted above General Appearance:Moderately built and nourished, no apparent distress Head: normocephalic, Atraumatic Eyes: normal inspection, EOMI Neck: supple, Trachea midline Respiratory/Chest: Normal breath sounds, CTA, No accessory muscle use Cardiovascular: S1, S2, No murmur Abdomen/GI:Soft, Non tender, Bowel sounds present Extremities/Musculoskeletal:normal inspection, no edema Neurologic/Psych:AAOX3, grossly no focal neurological deficits Skin: normal color, warm Results & Data Results & Data ([facility]) Vital Signs (Past 12 Hours) Vital Signs Temp Pulse Pulse Resp BP BP Pulse Ox 12/21/21 16:34 67 12/21/21 14:52 36.3 C L 65 18 120/76 94 12/21/21 12:22 35.9 C L 68 20 131/86 93 12/21/21 08:09 76 12/21/21 08:04 36.5 C 65 20 138/84 97 Laboratory Results Short CBC 12/21/21 Range/Units 06:30 WBC 4.70 L (4.8-10.8) K/uL Hgb 11.8 L (12.0-16.0) g/dL Hct 34.9 L (37-47) % Plt Count 240 (130-400) K/uL BMP 12/21/21 06:30 Sodium 138 Potassium 4.0 Chloride 102 Carbon Dioxide 29 BUN 23 Creatinine 0.66 Glucose 92 Calcium 8.6
[2021-12-21] MEDS: GABAPENTIN 100 MG CAP PO SCH ×3 (17:29→20:22)
[2021-12-21] MEDS: diazePAM 5 MG TABLET PO PRN ×2 (17:31→22:48)
[2021-12-21] MEDS ORDERED: HYDROmorphone INJ 0.5 MG/0.5 ML SYR IV PRN (23:04)
[2021-12-22] MEDS: METOCLOPRAMIDE HCL INJ 5 MG/ML 2 ML VIAL IV PRN (02:25)
[2021-12-22] MEDS ORDERED: HYDROmorphone INJ 1 MG/ML SYRINGE ONE (02:25)
[2021-12-22] MEDS: diazePAM 5 MG TABLET PO PRN ×2 (04:02→14:16)
[2021-12-22] MEDS: HYDROmorphone INJ 1 MG/ML SYRINGE IV PRN ×3 (06:07→14:16)
[2021-12-22 06:40] LABS: Basophils # (auto) 0.01 K/uL (0-0.2); Basophils % (auto) 0.2 %; Eosinophils % (auto) 4.8 %; Hematocrit (blood only) 33.3 % (37-47); Hemoglobin 11.3 g/dL (12.0-16.0); Lymphocytes # (auto) 1.67 K/uL (1.2-3.4); Mean Corpuscular Hemoglobin 30.6 pg (25-34); Mean Corpuscular Hgb Conc 33.9 g/dL (32-36); Mean Corpuscular Volume 90.2 fL (80-100); Mean Platelet Volume 9.4 fL (7.4-10.4); Monocytes # (auto) 0.33 K/uL (0.11-0.59); Monocytes % (auto) 7.9 %; Neutrophils # (auto) 1.97 K/uL (1.4-6.5); Neutrophils % (auto) 47.1 %; Platelet Count 229 K/uL (130-400); RDW Coefficient of Variation 12.6 % (11.5-14.5); RDW Standard Deviation 41.9 fL (36.4-46.3); Red Blood Count 3.69 M/uL (4.2-5.4); White Blood Count 4.18 K/uL (4.8-10.8)
[2021-12-22 07:19] LABS: BUN Creatinine Ratio 28.8 (10-20); Calcium 8.7 mg/dl (8.5-10.1); Creatinine Clr Calc Pharmacy 95.5 ml/min; Est GFR (African American) 110.5 ml/min; Est GFR (Non-African American) 95.4 ml/min; Magnesium 1.5 mg/dl (1.7-2.4)
[2021-12-22] MEDS: GABAPENTIN 100 MG CAP PO SCH (08:40)
[2021-12-22] MEDS: lisinopril 20 MG TAB PO SCH (08:40)
[2021-12-22] MEDS: SPIRONOLACTONE 25 MG TAB PO SCH ×2 (08:40→17:03)
[2021-12-22] MEDS: DOCUSATE SODIUM 100 MG CAP PO SCH (08:41)
[2021-12-22] MEDS: ENOXAPARIN INJ 40 MG/0.4 ML SYR SQ SCH (08:41)
[2021-12-22] MEDS: ASPIRIN 325 MG ECTAB PO SCH (08:41)
[2021-12-22] MEDS ORDERED: LIDOCAINE 5% 1 PATCH TD SCH (12:00)
[2021-12-22] MEDS ORDERED: DICLOFENAC SOD 1% GEL 100 GM TUBE EXT SCH (12:00)
--- NOTE | 2021-12-22 14:30 | Hospitalist Progress Note ---
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 No acute or subacute infarct. Chronic findings as above. --CT Cervical Spine:No acute cervical spine fracture or subluxation. 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 Unchanged postoperative findings with suggested hardware loosening. --Head/Neck CTA:There is no hemorrhage, mass effect, or evidence of acute territorial ischemia by CT criteria. Unremarkable CT angiogram of the brain. 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 The carotid arteries and the right vertebral artery are widely patent. Chronic posttraumatic and postoperative changes of C2. This is also similar to previous. --ECHO reviewed --Lipid penal -unremarkable --Appreciate neurology input and recommendation Continue aspirin Increase gabapentin as able to 200 mg 3 times daily Discussed with [facility] orthopedist, Dr. Randolph--No plan for intervention: Recommends outpatient follow up Lidocaine patch and diclofenac sodium gel have been applied to local area Advised to have Valium and if require we will give a small dose of narcotic pain medication to control pain She will keep the appointment to see her orthopedic surgeon on Monday Likely discharge tomorrow Hypertension Stable Continue lisinopril Cervical dysplasia S/P Surgery Mood disorder Stable DVT Px: Lovenox SQ Code Status Full code Admission and Anticipated Discharge Date Admission Date: December 21, 2021 Subjective 12/22/2021 The patient was seen and examined in medical telemetry unit She has been complaining of neck pain without radiculopathy Her pain is worse with any movement of the neck History of neck surgery and has screws in situ Review of Systems Review of Systems: All systems reviewed and are unremarkable except as noted below Musculoskeletal: Pain in the neck mostly on the left side with any movement of the head and neck Physical Exam Physical Exam: Lying in bed with distress secondary to neck pain Constitutional: well developed, well nourished and + ill appearing Eyes: PERRL, conjunctivae normal, anicteric sclerae ENMT: external ear and nose normal, oropharynx normal Neck: No leg swelling but any movement of the neck is painful and has tenderness on the left side of the neck Respiratory: no respiratory distress Auscultation: lungs clear to auscultation bilaterally Cardiovascular: Rate/Rhythm: regular rate and regular rhythm; not tachycardic Heart Sounds: normal S1 and normal S2; no murmur Gastrointestinal (Abdomen): Inspection/Auscultation: abdomen not distended Percussion/Palpation: abdomen soft; abdomen nontender Musculoskeletal: No acute arthritis in any joint except neck pain as mentioned above Neurologic: Alert, awake and oriented x3. No focal sensory or no motor deficit appreciated Results & Data Results & Data ([facility]) Vital Signs (Past 12 Hours) Vital Signs Temp Pulse Pulse Resp BP BP Pulse Ox 12/22/21 11:19 36.9 C 65 18 144/82 H 96 12/22/21 11:14 37.2 C 79 16 112/71 85 L 12/22/21 09:33 63 12/22/21 07:54 36.4 C L 69 20 132/80 95 12/22/21 04:19 36.8 C 62 18 124/80 95 Laboratory Results Short CBC 12/22/21 Range/Units 05:56 WBC 4.18 L (4.8-10.8) K/uL Hgb 11.3 L (12.0-16.0) g/dL Hct 33.3 L (37-47) % Plt Count 229 (130-400) K/uL BMP 12/22/21 05:56 Sodium 135 L Potassium 4.0 Chloride 102 Carbon Dioxide 28 BUN 21 Creatinine 0.73 Glucose 89 Calcium 8.7 Medications Administered Current Inpatient Medications Acetaminophen (Acetaminophen 325 Mg Tab) 650 mg PO Q6H PRN PRN Reason: Fever/pain Stop: 01/19/22 07:22 Last Admin: 12/21/21 21:24 Dose: 650 mg Documented by: Aspirin (Aspirin 325 Mg Ectab) 325 mg PO DAILY MIGUELITO Stop: 01/19/22 10:30 Last Admin: 12/22/21 08:41 Dose: 325 mg Documented by: Diazepam (Diazepam 5 Mg Tablet) 5 mg PO Q6H PRN PRN Reason: Pain Stop: 01/20/22 17:12 Last Admin: 12/22/21 14:16 Dose: 5 mg Documented by: Diclofenac Sodium (Diclofenac Sod 1% Gel 100 Gm Tube) 2 gm EXT BID [facility] Stop: 01/21/22 11:59 Last Admin: 12/22/21 12:35 Dose: 2 gm Documented by: Docusate Sodium (Docusate Sodium 100 Mg Cap) 100 mg PO BID [facility] Stop: 01/19/22 20:59 Last Admin: 12/22/21 08:41 Dose: 100 mg Documented by: Enoxaparin Sodium (Enoxaparin Inj 40 Mg/0.4 Ml Syr) 40 mg SQ QAM [facility] Stop: 01/19/22 10:30 Last Admin: 12/22/21 08:41 Dose: 40 mg Documented by: Gabapentin (Gabapentin 100 Mg Cap) 200 mg PO HS [facility] Stop: 01/19/22 20:59 Last Admin: 12/21/21 20:20 Dose: 200 mg Documented by: Gabapentin (Gabapentin 100 Mg Cap) 100 mg PO BID [facility] Stop: 01/20/22 17:04 Last Admin: 12/22/21 08:40 Dose: 100 mg Documented by: Hydromorphone HCl (Hydromorphone Inj 1 Mg/Ml Syringe) 1 mg IV Q3H PRN PRN Reason: Pain Stop: 01/05/22 03:42 Last Admin: 12/22/21 14:16 Dose: 1 mg Documented by: Lorazepam (Ativan) 0.25 mg in 0.5 mls @ 0.5 mls/min IV Q4H PRN PRN Reason: Anxiety Stop: 01/19/22 07:22 Last Admin: 12/20/21 08:55 Dose: 0.5 mls/min Documented by: Lorazepam (Ativan) 0.25 mg in 0.5 mls @ 0.5 mls/min IV Q1H PRN PRN Reason: anxiety prior or during mri Stop: 01/19/22 07:44 Ibuprofen (Ibuprofen 200 Mg Tab) 200 mg PO Q6H PRN PRN Reason: Mild Pain Stop: 01/19/22 07:22 Ketorolac Tromethamine (Ketorolac Tromethamine 15 Mg/Ml Vial) 15 mg IV Q6H PRN PRN Reason: Pain Stop: 12/25/21 07:22 Last Admin: 12/21/21 23:09 Dose: 15 mg Documented by: Lidocaine (Lidocaine 5% 1 Patch) 1 patch TD QAM [facility] Stop: 01/21/22 11:59 Last Admin: 12/22/21 12:35 Dose: 1 patch Documented by: Lisinopril (Lisinopril 20 Mg Tab) 20 mg PO BID [facility] Stop: 01/19/22 10:30 Last Admin: 12/22/21 08:40 Dose: 20 mg Documented by: Metoclopramide HCl (Metoclopramide Hcl Inj 5 Mg/Ml 2 Ml Vial) 10 mg IV Q6H PRN PRN Reason: Nausea Stop: 01/19/22 07:22 Last Admin: 12/22/21 02:25 Dose: 10 mg Documented by: Miscellaneous (Remove Lidoderm Patch) 1 ea N/A DAILY@2100 [facility] Stop: 01/21/22 20:59 Oxycodone HCl (Oxycodone Hcl Ir 5 Mg Tab (Immediate Release)) 5 - 10 mg PO Q6 PRN PRN Reason: Pain Stop: 01/03/22 07:22 Last Admin: 12/21/21 21:27 Dose: 10 mg Documented by: Spironolactone (Spironolactone 25 Mg Tab) 50 mg PO BID17 [facility] Stop: 01/19/22 10:30 Last Admin: 12/22/21 08:40 Dose: 50 mg Documented by:
[2021-12-22 16:03] VITALS: BP 155/73; PULSE 76; TEMP 98.2; O2SAT 94
--- NOTE | 2021-12-23 07:45 | Discharge Summary ---
Date of Service December 23, 2021 Admission HPI Per Admitting Provider History obtained from patient, family, and records. Medical history significant for hypertension, migraine, traumatic C1-C2 fracture status post surgery (05/2020), right cerebellar stroke secondary to perioperative left vertebral artery dissection secondary to left screw placement (C2 vertebra), cervical dysplasia status post surgery, mood disorder. Last confinement August 2021 for intractable occipital headache/neck pain. Patient evaluated by Neurology. Discharged on gabapentin course. Patient referred to [facility] neurosurgeon (Dr. Naqvi) by patient's [facility] orthopedist (Dr. Randolph) for evaluation of culprit C2 screw causing left vertebral artery occlusion. Outpatient diagnostic cervical cerebral angiogram recommended but was rescheduled to December, due to patient's COVID-19 illness last month. Last month, patient noted increase frequency/severity of left achy occipital/neck pain. No fever, no chills. No chest pain, no S OB. No arm or leg weakness or incontinence symptoms. 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 Patient went home after her shift and felt better after sleeping. Last night she noted severe excruciating sharp pain on the left upper neck worse with motion. No vision abnormalities. No arm or leg weakness. Patient brought to the ER by family for evaluation. Multiple narcotics administered at the ER for intractable left neck pain. Medical History as above Surgical History : Breast lesion excision, vascular procedure, partial hysterectomy with partial removal of pelvic structures, neck spine fusion with graft surgery, odontoid fracture surgery Family History : Brain cancer, DM, hypertension Personal/Social history : Non-smoker, no EtOH intake, ER nurse Admission Exam Per Admitting Provider Physical Exam: GENERAL: Slightly uncomfortable, pleasant, looks younger for stated age, no respiratory distress SKIN: Normal color, warm HEENT: Left occipital tenderness [place] palpebral conjunctivae, no ptosis, dry buccal mucosa NECK : Limited mobility, left upper cervical tenderness CHEST : CTA, no tenderness HEART : RRR, no obvious murmurs ABDOMEN: Some distention, nontender EXTREMITIES : No LE swelling/tenderness, no other conspicuous deformities noted NEUROLOGIC : Coherent, no facial asymmetry, no other gross focality Principal Diagnosis Neck pain, history of traumatic C1-C2 fracture status post surgery in May 2020 Discharge Exam Lying in bed with distress secondary to neck pain Constitutional well developed, well nourished and + ill appearing Eyes PERRL, conjunctivae normal, anicteric sclerae ENMT external ear and nose normal, oropharynx normal Respiratory no respiratory distress Auscultation: lungs clear to auscultation bilaterally Cardiovascular Rate/Rhythm: regular rate and regular rhythm; not tachycardic Heart Sounds: normal S1 and normal S2; no murmur Gastrointestinal (Abdomen) Inspection/Auscultation: abdomen not distended Percussion/Palpation: abdomen soft; abdomen nontender Discharge Data Allergies Allergy/AdvReac Type Severity Reaction Status Date / Time morphine Allergy Mild Rash Verified 12/20/21 07:23 Influenza Virus Vaccines Allergy Unknown Unknown Verified 12/20/21 01:54 thimerosal Allergy Unknown Unknown Verified 12/20/21 01:54 promethazine AdvReac Intermediate MADE ARM Verified 12/20/21 01:54 TWITCH FOR 6 HRS; HAS TOLERATED COMPAZINE W/O RXN fluoxetine AdvReac Mild "SHAKES" Verified 12/20/21 01:54 Consultations 12/20/21 06:28 ED Decision to Admit Stat 12/20/21 10:31 Consult Neurology Routine Ordered Studies 12/20/21 01:40 CT angio neck with con Urgent 12/20/21 01:45 CT angio head w con Urgent CT head/brain wo con Urgent 12/20/21 01:54 CT cervical spine wo con Urgent 12/20/21 07:45 MR brain wo con Routine Hospital Course (1) TIA (transient ischemic attack): Transient Right visual symptoms Less likely TIA but could be secondary to migraine Likely related to nerve impingement due to hardware from prior surgery 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 No acute or subacute infarct. Chronic findings as above. --CT Cervical Spine:No acute cervical spine fracture or subluxation. 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 Unchanged postoperative findings with suggested hardware loosening. --Head/Neck CTA:There is no hemorrhage, mass effect, or evidence of acute territorial ischemia by CT criteria. Unremarkable CT angiogram of the brain. 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 The carotid arteries and the right vertebral artery are widely patent. Chronic posttraumatic and postoperative changes of C2. This is also similar to previous. --ECHO reviewed --Lipid penal -unremarkable --Appreciate neurology input and recommendation Continue aspirin Increase gabapentin as able to 200 mg 3 times daily Discussed with [facility] orthopedist, Dr. Randolph--No plan for intervention: Recommends outpatient follow up Lidocaine patch and diclofenac sodium gel have been applied to local area Advised to have Valium and if require we will give a small dose of narcotic pain medication to control pain She will keep the appointment to see her orthopedic surgeon on Monday Likely discharge tomorrow Hypertension Stable Continue lisinopril Cervical dysplasia S/P Surgery Mood disorder Stable DVT Px: Lovenox SQ Code Status Full code Total Time Total Time Spent Total Time Spent (In Minutes): 35 minutes Discharge Plan Discharge Items Patient Disposition: Home - Self-Care Reason For Visit: NECK PAIN Discharge Diagnosis: Neck pain, history of traumatic C1-C2 fracture status post surgery in May 2020 Condition on Discharge: Fair Activity: Resume your previous activity Non-emergency contact: Primary Care Provider Call non-emergency contact if: you have any medication questions and your symptoms worsen Follow-up/Referrals: Anthony Babb MD [Primary Care Provider] - (Date & Time 12/29/2021 3:00 PM Provider Anthony Babb MD [facility] ) Diet: Regular Addtl Attending Provider Instructions: Please take precautions to avoid fall Try to use [id number] ibuprofen up to 600 mg 3 times daily with food to control pain Please try to use less of narcotic pain medication to avoid constipation, confusion and addiction. Keep appointment with your orthopedic surgeon and also primary care provider Pending Studies at Discharge: No Stand-Alone Forms: My Hitsbook, Smoking Cessation Medications and DC Order Prescriptions: New gabapentin 100 mg Capsule 100 mg PO BID 30 Days Qty: 60 RF: 0 diazepam 5 mg Tablet 5 mg PO Q6H PRN (Reason: anxiety) 10 Days Qty: 20 RF: 0 oxycodone 5 mg Tablet 5 mg PO Q6 PRN (Reason: pain) 10 Days Qty: 20 RF: 0 diclofenac sodium [Voltaren Arthritis Pain] 1 % Gel 2 g EXT BID 30 Days Qty: 50 RF: 0 Continued aspirin 325 mg Tablet 325 mg PO DAILY RF: 0 lisinopril 20 mg tablet 20 mg PO BID RF: 0 spironolactone 50 mg tablet 50 mg PO BID RF: 0 gabapentin 100 mg Capsule 200 mg PO HS Qty: 30 RF: 0 acetaminophen [Tylenol Extra Strength] 500 mg tablet 1,000 mg PO Q8 PRN (Reason: Pain) RF: 0 Discharge Orders: Discharge Order (Routine); Ordered 12/22/21 Ordered By: Nazario Hoyt Admission Data Admit Date/Time: 12/21/21 17:06 Attending Provider: Nazario Hoyt Admit Provider: Vivek Lao Primary Care Provider: Anthony Babb Other Providers: Vivek Lao ; Dalia Tovar ; Manny Jacobsen ; Dalia Fiore ; Theo Lemon ; Francis Edwards Other Interventions: Discharge Summary Assessment (RN) Last Done: 12/22/21 17:38
== END 2021-12-22 18:03 | disposition home or self-care (01) ==
LOC: ED 01:27 → EDINP 01:27 → 2N 10:06 → SUATTDRO 12-21 17:06